=== PATIENT | female | born 1985 | race Caucasian/White ===

== ENCOUNTER 2024-01-05 08:19 | Outpatient (CLI) | payer OTHER, SELFPAY ==
--- NOTE | ~2024-01-05 | CT_ITS ---
EXAMINATION: CT abdomen pelvis w con INDICATION: Right lower quadrant pain TECHNIQUE: Computed tomographic images of the abdomen and pelvis were obtained after the administrati on of 100 cc of Omnipaque 350 intravenous contrast. The dose-length product (DLP) was 519.77 mGy-cm. Automated exposure control and iterative reconstruction technique were employed. COMPARISON: None available FINDINGS: There is a calcified granuloma in the medial aspect of the left lower lobe. The heart size is normal. There are multiple hypoattenuating lesions of the liver which measure up to 1.6 cm in the right hepatic lobe. Some have the appearance of cysts and others, hemangiomas. The spleen, pancreas, gallbladder, and adrenal glands are normal. Hypoattenuating lesions in the kidneys, measuring up to 5 mm on the left, are too small to characterize but likely represent cysts. There are surgical changes of the right colon. No pathologically enlarged abdominal or pelvic lymph nodes are identified. No fr ee intraperitoneal gas or evidence of bowel obstruction. There are nabothian cysts of the cervix. IMPRESSION: 1. No CT correlate for the patient's symptoms. Reviewed, dictated and finalized at location A.
== END 2024-01-05 08:20 | disposition home or self-care (01) ==
LOC: ANHIMG 08:24
PROVIDERS: PCP Nurse Practitioner Family; Visit Provider Nurse Practitioner Family
DX: R10.31 Right lower quadrant pain (principal)
CPT/HCPCS: 74177; Q9967

== ENCOUNTER 2024-10-28 16:27 | Outpatient (CLI) | payer OTHER, SELFPAY ==
--- NOTE | ~2024-10-28 | US_ITS ---
EXAM: PELVIC ULTRASOUND HISTORY: O03.9 - Complete or unspecified spontaneous with... Last beta hCG was ordered on 10/23/2028. No quantitative beta hCG to correlate today's study with. 2 para 1 Last menstrual period is given as 08/12/2024, for which an intrauterine gestation of approximately 11 weeks and 0 days should be demonstrated on today's examination. COMPARISON: None FINDINGS: UTERUS: 10 x 5.3 x 7.8 cm. The endometrial complex is thickened measuring approximately 14 to 15 mm. No discrete gestational sac is appreciated on the submitted static imaging. RIGHT OVARY: The right ovary is unremarkable in echogenicity and size measuring 3.7 x 1.9 x 3.0 cm. Dopplerable flow is identified. LEFT OVARY: The left ovary is unremarkable in echogenicity and size measuring 3.1 x 2.2 x 2.8 cm Dopplerable flow is identified. No free fluid is identified within the pelvis. IMPRESSION: No discrete gestational sac is appreciated on the submitted static imaging. Please correlate these findings with the serum beta hCG. Reviewed, dictated and finalized at location A. PICK UP DRIVER
--- OUTSIDE RECORDS SUMMARY | 2024-10-31 14:44 | XMS_ITS ---
Author Organization [facility] As Chrom[facility] Address [address] [place] [address] Care Team Providers Care Water Softener Service Supervisor Name Role Phone [facility] Primary Care Provider Unavailable Claudia Ya Unavailable [phone] REASON FOR VISIT buPROPion Social History Sex Assigned At : Social History Observation Description Sex Assigned At Female Encounters Encounter Location Date Provider Diagnosis [facility] [employer] [facility] [address] [place] [address] 09/27/2024 Claudia Ya Plan Of Treatment Next Appt Details Provider Name:Claudia Ya, 11/04/2024 04:45:00 PM, [address], [address], [place], [address], Progress Notes * CHAVO RUIZNDOB: (38 yo F)Acc No.[id number]:09/27/2024 Patient:?DAMI RUIZ :1985???Age:38 Y???Sex:Female Address:[address] [place] [place] [address] [place], [address] * true * Date:? Generated for Printi ng/Faxing/eTransmitting on:?10/31/2024 02:44 PM [employer]
--- OUTSIDE RECORDS SUMMARY | 2024-10-31 14:45 | XMS_ITS | Clinical Summary ---
Author Organization [facility] Address [address] [place] [address]. [place] [address] [place] [address] Care Team Providers Care Citrix Administrator Name Role Phone Rachelljeremy Christianne Mcgovern [facility] Primary Care Provid er Allergies Active Allergy Reactions Criticality Noted Date Comments Red Dye #40 (Allura Red) Rash Low 03/16/2022 Medications DULoxetine (CYMBALTA) 30 MG capsuleIndicati ons:HARSH (generalized anxiety disorder) Take 1 capsule (30 mg total) by mouth 2 (two) times daily. 60 capsule 6 08/25/2023 Active buPROPion XL (WELLBUTRIN XL) 150 MG 24 hr tablet Take 1 tablet (150 mg total) by mouth every morning. FOR 14 DAYS 11/02/2023 Active multi vitamin/mineral s (THERA-M ENHANCED) tablet Take 1 tablet by mouth daily. Active Active Problems Problem Noted Date Diagnosed Date Lipoma of back 03/18/2024 HARSH (generalized anxiety disorder) 02/24/2023 Major depressive disorder in full remission 02/06 Resolved Problems Problem Noted Date Diagnosed Date Resolved Date Menometrorrhagia 02/24/2023 02/24/2023 Multiple joint pain 02/24/2023 02/25/20 23 Exposure to severe acute res piratory syndrome coronavirus 2 (SARS-CoV-2) 05/29/2021 02/24/2023 (HHS/HCC) 01/15/2020 02/25/20 23 Encounters Date Type Department Care Team Description 08/07/2024 9:00 AM CDT Office Visit [facility] [address] [place] [address] Christianne Tirado, ONLINE PRODUCER- Cough (Productive cough started with allergies on right side x 2 weeks started getting better and then started cough with phlegm /Fever 100, 100.3 last night, Monday,Monday last week /drainage /Hot/cold ) 08/07/2024 Travel from Last 3 Months Immunizations Name Administration Dates Next Due Fluzone 6 Months+ Quad (0.5 mL Prefilled Syringe ) 08/25/2023 Influenza (Generic) 07/17/2012 Influenza Adult (Generic) 08/09/2019 Family History Medical History Relation Comments Anxiety Father COPD Father Smoker Rheumatoid Arthritis Father Cancer Maternal Grandfather gallbladder Diabetes Maternal Grandfather Stroke Maternal Grandmother Anxiety Mother acid reflux Mother Rheumatoid Arthritis Paternal Grandfather Failure to thrive Paternal Grandmother Relation Status Comments Father Alive Maternal Grandfather Maternal Grandmother Mother Alive Paternal Grandfather Paternal Grandmother Social History Tobacco Use Types Packs/Day Years Used Date Smoking Tobacco: Never Smokeless Tobacco: Never Tobacco Cessation:Counseling Given: Yes Alcohol Use Standard Drinks/Week Comments Yes 0 (1 standard drink = 0.6 oz pur e alcohol) PHQ-2 Answer Date Recorded Patient Health Questionnaire-2 Score 0 03/18/2024 Comments No Sex and Gender Information Value Date Recorded Sex Assigned at Not on file Legal Sex Female 8:07 PM CDT Gender Identity Not on file Sexual Orientation Not on file Last Filed Vital Signs Vital Sign Reading Time Taken Comments Blood Pressure 113/74 08/07/2024 9:07 AM CDT Pulse 90 08/07/2024 9:07 AM CDT Temperature 36.7 ??C (98.1 ??F) 08/07/2024 9:07 AM CD T Respiratory Rate 17 08/07/2024 9:07 AM CDT Oxygen Saturation 100% 08/07/2024 9:07 AM CDT Inhaled Oxygen Concentration - - Weight 71.8 kg (158 lb 3.2 oz) 08/07/2024 9:07 A M CDT Height 160 cm (5' 3 ) 08/07/2024 9:07 AM CDT Body Mass Index 28.02 08/07/2024 9:07 AM CDT Plan of Treatment Health Maintenance Due Date Last Done Comments Cervical Cancer Screening Pa p Smear (Age 30 to 64) Every 3 Years 1984 Annual Physical 12/25/1987 DTaP, Tdap and Td Vaccines ( 1 - Tdap) 12/25/2003 Hepatitis B Vaccines (1 of 3 - 19+ 3-dose series) 12/25/2003 Cervical Cancer Screening Pa p with HPV Testing (Age 30 to 64) Every 5 Years 2014 Cervical Cancer Screening wi th HPV 2014 COVID-19 Vaccine (1 - 2023-2 5 season) 2024 Influenza Adult (#1) 2024 08/25/2023, 08/09/2019, 07/17/2012 PHQ-2 (Physician [place]) 03/18/2025 03/18/2024 Hepatitis C Completed 03/17/2022 HPV Vaccines Aged Out No longer eligi ble based on patient's age to complete this topic Meningococcal B Vaccine Aged Out No l onger eligible based on patient's age to complete this topic Meningococcal Vaccine Aged Out No marta fernanda eligible based on patient's age to complete this topic Pneumococcal Vaccine: Pediatrics (0 to 5 Years) and At-Risk Patients (6 to 64 Years) Aged Out No longer eligible b ased on patient's age to complete this topic RSV Immunizations Under 20 Months Aged Out No longer eligible b ased on patient's age to complete this topic Procedures Procedure Name Priority Date/Time Associated Diagnosis Comments HEPATITIS C ANTIBODY Routine 03/17/2022 11:39 AM CDT Encounter for hepatitis C screening test for low risk patient from Last 3 Months or Most Recently Relevant to Health Maintenance Results * HEPATITIS C AB ([facility] ONLY) (03/17/2022 11:39 AM CDT) HEPATITIS C AB NON-REACTI VE NON-REACTI VE 03/17/2022 9:42 PM CDT [facility] 03/17/2022 11:3 9 AM CDT Sandra Mon NP LABORATORY Final Resul t [facility] [address] [place] [address], from Last 3 Months or Most Recently Relevant to Health Maintenance Insurance [employer] Care Teams Citrix Administrator Relationship Specialty Start Date End Date Christianne Tirado FNP-BC [address] [place] [address] PCP - General Nurse Practitioner Family 12/07/22
--- OUTSIDE RECORDS SUMMARY | 2024-10-31 14:45 | XMS_ITS ---
Author Organization [facility] Address [address] [facility] [address] [place] [address] Care Team Providers Care Wool Mixer Name Role Phone [facility]ALS[facility]Christianne Primary Care Provider Unavailable Musa Ya Unavailable [phone] Allergies No Known Allergies REASON FOR VISIT follow up Medications Medication SIG (Take, Route, Frequency, Duration) Notes Start Date End Date Status LORazepam 0.5 MG 1 tablet Orally Once a day 2023 Active buPROPion HCl ER (XL) 150 MG 1 tablet in the morning Orally Once a day for 90 days Active DULoxetine HCl 30 MG 1 capsule Oral Once a day for 90 days Active Social History Tobacco Use: Social History Observation Description Date Details (start date - stop date) Never Smoker NA - NA Sex Assigned At : Social History Observation Description Sex Assigned At Female Household Question Answer Notes Marital status: Number of children in household: One daughter Tobacco Control (Standard) Question Answer Notes Tobacco use: Nonsmoker Encounters Encounter Location Date Provider Diagnosis [facility] [employer] [facility] [address] [place] [address] 09/02/2024 Musa Ya Major depressive disorder, recurrent, mild F33.0 ; Generalized anxiety disorder F41.1 and ADHD (attention deficit hyperactivity disorder), combined type F90.2 Assessments Encounter Date Diagnosis (ICD Code) Assessment Notes Treatment Notes Treatment Clinical Notes Section Notes 09/02/2024 Major depressive disorder, recurrent, mild (ICD-10 - F33.0) 09/02/2024 Generalized anxiety disorder (ICD-10 - F41.1) 09/02/2024 ADHD (attention deficit hyperactivity disorder), combined type (ICD-10 - F90.2) working dx 09/02/2024 Other Decrease duloxetine to 30mg once daily Continue Wellbutrin 150mg daily Patient educated on all medications including potential benefits, side effects, risks. Educated on proper dosing schedule and importance of compliance. Consider tapering off of duloxetine after holidays Plan Of Treatment Medication Medication Name Sig Start Date Stop Date Notes buPROPion HCl ER (XL) 150 MG 1 tablet in the morning Orally Once a day for 90 days DULoxetine HCl 30 MG 1 capsule Oral Once a day for 90 days Treatment Notes Assessment Notes Other Decrease duloxetine to 30mg once daily Continue Wellbutrin 150mg daily Patient educated on all medications including potential benefits, side effects, risks. Educated on proper dosing schedule and importance of compliance. Consider tapering off of duloxetine after holidays Next Appt Details Follow Up: 6 Weeks, Reason: medication follow up Provider Name:Musa Ya, 11/04/2024 04:45:00 PM, [address] [place] [address], [facility] [address], [address], Progress Notes * CHAVO RUIZNDOB: (38 yo F)Acc No.[id number]:09/02/2024 Patient:?DAMI RUIZBuffy Provider:?MUSA YA PMHNP :1985???Age:38 Y???Sex:Female D ate:09/02/2024 Address:[address] [place], [place] [id number] Pcp:Christianne Tirado [facility] Subjective: * Chief Complaints: * ???Follow up * HPI: ???Providence-Suicide Severity Rating Scale:?Suicide Risk (CSRS-screener)?in the past one month Have you wished you were or wished you could go to sleep and not wake up??No,?in the past one month Have you actually had any thoughts of killing yourself??No,?Have you ever done anything, started to do anything, or prepared to do anything to end your life??No.?Depression screening:?PHQ-9?Little interest or pleasure in doing things?Several days,?Feeling down, depressed, or hopeless?Several days,?Trouble falling or staying asleep, or sleeping too much?Several days,?Feeling tired or having little energy?Several days,?Poor appetite or overeating?Not at all,?Feeling bad about yourself or that you are a failure, or have let yourself or your family down?Not at all,?Trouble concentrating on things, such as reading the newspaper or watching television?Several days,?Moving or speaking so slowly that other people could have noticed; or the opposite, being so fidgety or restless that you have been moving around a lot more than usual?Not at all,?Thoughts that you would be better off or of hurting yourself in some way?Not at all.?Intervention Depression Screening Findings?Positve,?Follow- Up for Depression?Mental health treatment assessment, Patient follow-up to return when and if necessary,?Suicide Risk Assessment Performed? csrs negative ,?Additional Evaluation for Depression?Psychiatric interview and evaluation,?Name of the standardized tool used for adult depression screening:?Patient Health Questionnaire (PHQ-9).?History of Presenting Problem:?Medication Side Effects?decreased libido.?Anxiety?Rates anxiety 3/10 with 10 being most severe. Denies recent panic attacks.?.?Depression?Rates depression 2/10 with 10 being most severe.?.?Mood lability?no hx ximena. Psychosis?no hx psychosis.?Suicidal ideation?denies.?ADHD?easily distracted by extraneous stimuli, has difficulty organizing tasks and activities, does not follow through on instructions and fails to finish work, has difficulty sustaining attention in tasks or play activity, often on the go or often acts as if driven by a motor.?Psychotherapy?Has a counselor at [facility] in [place].?.?Here for follow up. Duloxetine decreased last apt. Reports she is doing better . Continues to report irritability, although triggered by work, no irritability at home with family. Denies feeling depressed, gets low mood when she is overwhelmed. Denies panic attacks. Anxiety is overall improved.? Sleep is fair, getting about 7 horus nightly. Energy is fair. Appetite is good. ???Past Psychiatric Hospitalizations:? Social hx: . Has one daughter-3 years old. She would like another child. Works as a physical therapist, is also a PT. Originally from [facility], 's family from [place]. 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 Previous Psychiatric History past diagnosis: MDD, HARSH previous admissions/IOP/PHP: none history of SI/SA: no history of suicide attempts. History of fleeting thoughts, no history of plans. family psychiatric history: father-depression and HARSH; mother-depression; maternal grandmother-HARSH. previously trialled medications: Prozac, Lexapro, Cymbalta, Effexor, Wellbutrin.? history of neglect/abuse/trauma: step father would get angry , denies history of physical abuse. substance use history: denies. * ROS:?General / Constitutional:?Patient denies?change in appetite, headache, sleep disturbance, weight gain, weight loss.?Neurologic:?Patient denies?headache, irritability, memory loss.?Psychiatric:?Patient denies?suicidal thoughts, ximena, psychosis, auditory / visual hallucinations, delusions.?Patient complains of?anxiety, difficulty concentrating.?Comments?See HPI for details.? * Medical History:? * Surgical History:?Appendecto my ([id number]) 08/18/2015Other 08/18/2015Colectomy ([id number]) 08/18/2015 * Hospitalization/Major Diagno stic Procedure:? * Family History:?Father: Depr essive disorder .?Mother: Anxiety disorder , Depressive disorder .? * Social History:?Tobacco Use:?Tobacco Control (Standard)?Tobacco use:?Nonsmoker.?Migrated Social History:?Migrated Social History: Alcohol Intake: Moderate 10/05/2023,Tobacco Years: Never smoker 10/05/2023. ???Household:?Household?Marital status:?,?Number of children in household:? One daughter.?Miscellaneous:?Occupation: Physical therapist. Advance Care Planning?Are you your own decision-maker?Yes,?Do you have Power of [employer] Crewmember for Health or Medical??No.? * Medications:?TakingDULoxetin e HCl 30 MG Capsule Delayed Release Particles 1 capsule Oral twice daily buPROPion HCl ER (XL) 150 MG Tablet Extended Release 24 Hour 1 tablet in the morning Orally Once a day LORazepam 0.5 MG Tablet 1 tablet Orally Once a day Medication List reviewed and reconciled with the patientTaking DULoxetine HCl 30 MG Capsule Delayed Release Particles 1 capsule Oral twice daily Taking buPROPion HCl ER (XL) 150 MG Tablet Extended Release 24 Hour 1 tablet in the morning Orally Once a day Taking LORazepam 0.5 MG Tablet 1 tablet Orally Once a day Medication List reviewed and reconciled with the patient * Allergies:?N.K.D.A.no[Allerg ies Verified] Objective: * Vitals:? * Examination: ???Psychiatry: ?Appearance:?well-groomed.?Abnormal body movements:?none.?Affect / mood:?appropriate.?Attention:?good.?Attitude:?cooperative.?Homicidal ideation:?none.?Suicidal ideation:?none.?Degree of awareness of surroundings:?within normal limits.?Delusions:?no.?Hallucinations:?no.?Judgement:?good.?Orientation:?awake, alert and oriented x 3.?Perceptual disorders:?no perceptual disorder noted.?Psychomotor activity:?within normal range.?Speech / language:?normal rate, volume, and articulation (RVR), clear and coherent.?Thought content:?appropriate.?Thought process:?intact.? Assessment: * Assessment: 1.?Major depressive disorder , recurrent, mild - F33.0 (Primary)???2.?Generalized anxiety disorder - F41.1???3.?ADHD (attention deficit hyperactivity disorder), combined type - F90.2??? Plan: * Treatment: 2.?ADHD (attention deficit h yperactivity disorder), combined type? Refill buPROPion HCl ER (XL) Tablet Extended Release 24 Hour, 150 MG, 1 tablet in the morning, Orally, Once a day, 90 days, 90 Tablet, Refills 0.?? Clinical Notes: working dx?? 3.?Others? Notes: Decrease duloxetine to 30mg once daily Continue Wellbutrin 150mg daily Patient educated on all medications including potential benefits, side effects, risks. Educated on proper dosing schedule and importance of compliance. Consider tapering off of duloxetine after holidays ?? * Procedure Codes:?83178 BEHAV ASSMT W/SCORE & DOCD/STAND [id number] VISIT COMPLEXITY INHERENT TO ONGOING CARE RELATED TO A PATIENT'S SINGLE, SERIOUS CONDITION OR A COMPLEX [id number] CLIN DEPRESSION SCREEN DOC * Follow Up:?6 Weeks (Reason: medication follow up) * Billing Information: * Visit Code:? 15365 OFFICE OUTPATIENT VISIT 25 MINUTES DETAILED HISTORY AND EXAM/MODERATE MEDICAL DECISION MAKING. * Procedure Codes:? 98830 BEHAV ASSMT W/SCORE & DOCD/STAND INSTRUMENT. G2211 VISIT COMPLEXITY INHERENT TO ONGOING CARE RELATED TO A PATIENT'S SINGLE, SERIOUS CONDITION OR A COMPLEX CONDITION. G8431 CLIN DEPRESSION SCREEN DOC. * TILE SETTER Sign off status: Completed true * Provider:?ARMANDO JAMES Date:? Generated for Soha vazquez/Jasper/eTransmitting on:?10/31/2024 02:44 PM HARD TILE SETTER History and Physical Notes * HPI (History of Present Illness) Category Sub-Category Detail Notes Category Not es History of Presenting Problem Anxiety Rates anxiety 3/10 with 10 b eing most severe. Denies recent panic attacks. Here for follow up. Duloxetine decreased last apt. Reports she is doing better . Continues to report irritability, although triggered by work, no irritability at home with family. Denies feeling depressed, gets low mood when she is overwhelmed. Denies panic attacks. Anxiety is overall improved. Sleep is fair, getting about 7 horus nightly. Energy is fair. Appetite is good. Depression Rates depression 2/1 0 with 10 being most severe. Suicidal ideation denies Psychosis no hx psychosis Mood lability no hx ximena ADHD easily distracted by extraneous stimuli, has difficulty organizing tasks and activities, does not follow through on instructions and fails to finish work, has difficulty sustaining attention in tasks or play activity, often on the go or often acts as if driven by a motor Psychotherapy Has a counselor at [facility] in [place]. Medication Side Effects decreased libido Past Psychiatric Hospitalizations Social hx: . Has one daughter-3 years old. She would like another child. Works as a physical therapist, is also a PT. Originally from [place], 's family from [place]. 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 Previous Psychiatric History past diagnosis: MDD, HARSH previous admissions/IOP/PHP: none history of SI/SA: no history of suicide attempts. History of fleeting thoughts, no history of plans. family psychiatric history: father-depression and HARSH; mother-depression; maternal grandmother-HARSH. previously trialled medications: Prozac, Lexapro, Cymbalta, Effexor, Wellbutrin. history of neglect/abuse/trauma: step father would get angry , denies history of physical abuse. substance use history: denies Depression screening PHQ-9 Little inte rest or pleasure in doing things: Several days Feeling down, depressed, or hopeless: Se veral days Trouble falling or staying asleep, or sl eeping too much: Several days Feeling tired or having little energy: S everal days Poor appetite or overeating: Not at all Feeling bad about yourself o r that you are a failure, or have let yourself or your family down: Not at all Trouble concentrating on thi ngs, such as reading the newspaper or watching television: Several days Moving or speaking so slowly that other people could have noticed; or the opposite, being so fidgety or restless that you have been moving around a lot more than usual: Not at all Thoughts that you would be b pablito off or of hurting yourself in some way: Not at all Intervention Depression Screening Findings: P ositve Follow-Up for Depression: [facility] treatment assessment, Patient follow-up to return when and if necessary Suicide Risk Assessment Performed: csrs negative Additional Evaluation for De pression: Psychiatric interview and evaluation Name of the standardized too l used for adult depression screening:: Patient Health Questionnaire (PHQ-9) Providence-Suicide Severity Rating Scale Suicide Risk (CSRS-screener) in the past one month Have you wished you were or wished you could go to sleep and not wake up?: No in the past one month Have y ou actually had any thoughts of killing yourself?: No ?Have you ever done anything , started to do anything, or prepared to do anything to end your life?: No Examination Category Sub-Category Detail Notes Category Not es Psychiatry Appearance: well-groomed Attitude: cooperative Psychomotor activity: within normal rang e Abnormal body movements: none Attention: good Degree of awareness of surroundings: wit hin normal limits Orientation: awake, alert and faith ented x 3 Affect / mood: appropriate Speech / language: normal rate, volume, and articulation (RVR), clear and coherent Judgement: good Thought process: intact Thought content: appropriate Perceptual disorders: no perceptual diso rder noted Suicidal ideation: none Homicidal ideation: none Delusions: no Hallucinations: no
--- OUTSIDE RECORDS SUMMARY | 2024-10-31 14:45 | XMS_ITS | Patient Health Record ---
Author Organization [facility] [employer] Address [address] [place] [address] Care Team Providers Care Pediatrician/Medical Doctor Name Role Phone Candida Christianne HENSLEY Primary Care Provider Unavailable Claudia Ya Unavailable [phone] Dar Salomon Unavailable [phone] Migration, Provider Unavailable Unavailable Allergies No Known Allergies Results Component Value Reference Range Notes UDT Reviewed date:06/01/2024 11:36:38 AM Interpretation: Performing Lab: Notes/Report: THC n 0 - 50 ng/ml Cocaine n 0 - 300 ng/ml Amphetamine n 0 - 1000 ng/ml Buprenorphine (BUP) n 0 - 10 ng/ml Secobarbital (Bar) n 0 - 300 ng/ml Oxazepam (BZO) n 0 - 300 ng/ml 6-rlkydkuwqm-1,1-vxlduews-5,3-diphenylpyrrolidine (JOHN P) n 0 - 300 ng/ml Methamphetamine (MET) n 0 - 1000 ng/ml Methylenedioxymethamphetamine (MDMA) n 0 - 500 ng/ml Morphine (MOP 300/[id number]) n 0 - 300 ng/ml Methadone (MTD) n 0 - 300 ng/ml Phencyclidine (PCP) n 0 - 25 ng/ml Propoxyphene (PPX) n 0 - 300 ng/ml Nortriptyline (TCA) n 0 - 1000 ng/ml Oxycodone n 0 - 300 ng/ml Reason For Referral No Information Medications Medication SIG (Take, Route, Frequency, Duration) [...] (Standard) Question Answer Notes Tobacco use: Nonsmoker Problems Problem Type SNOMED Code ICD Code Onset Dates Problem Status W/U Status Risk Notes Problem Mild recurrent major depression (94611638) Major depressive disorder, recurrent, mild (F33.0) Active confirmed Problem Generalized anxiety disorder (73881854) Generalized anxiety disorder (F41.1) Active confirmed Problem Attention deficit hyperactivity disorder (388032768) ADHD (attention deficit hyperactivity disorder), combined type (F90.2) Active confirmed Procedures Procedure Date Ordered Date Performed Result Body Sit e ADHD Testing 05/13/2024 N/A Encounters Encounter Location Date Provider Diagnosis [facility] [employer] [place] [id number] [facility] [address] [facility] [address] [place] [address] 11/06/2023 Claudia Felton Major depressive disorder, recurrent, mild F33.0 and Generalized anxiety disorder F41.1 [facility] [employer] [place] [id number] [facility] [address] [facility] [address] [place] [address] 05/13/2024 Claudia Felton Major depressive disorder, recurrent, mild F33.0 ; Generalized anxiety disorder F41.1 and ADHD (attention deficit hyperactivity disorder), combined type F90.2 [facility] [employer] [facility] [address] [facility] [address] [facility] [address] [place] [address] 05/31/2024 Dar Salomon ADHD (attention deficit hyperactivity disorder), combined type F90.2 [employer] [place] [address] [facility] [address] [place] [address] 06/07/2024 Claudia Felton Major depressive disorder, recurrent, mild F33.0 ; Generalized anxiety disorder F41.1 and ADHD (attention deficit hyperactivity disorder), combined type F90.2 [facility] [employer] [facility] [address] [facility] [address] [place] [address] 08/05/2024 Claudia Felton Major depressive disorder, recurrent, mild F33.0 ; Generalized anxiety disorder F41.1 and ADHD (attention deficit hyperactivity disorder), combined type F90.2 [facility] [place] [address] [facility] [address] [address] 09/02/2024 Claudia Ya Major depressive disorder, recurrent, mild F33.0 ; Generalized anxiety disorder F41.1 and ADHD (attention deficit hyperactivity disorder), combined type F90.[address] [address] 11/06/2023 Provider Migration [address] [address] 12/03/2023 Provider Migration [address] [address] 12/08/2023 Provider Migration [address] [address] 02/24/2024 Provider Migration [address] [address] 02/25/[address] [address] 09/27/2024 Claudia Ya Assessments Encounter Date Diagnosis (ICD Code) Assessment Notes Treatment Notes Treatment Clinical Notes Section Notes 05/13/2024 Major depressive disorder, recurrent, mild (ICD-10 - F33.0) 05/13/2024 Generalized anxiety disorder (ICD-10 - F41.1) 11/06/2023 Major depressive disorder, recurrent, mild (ICD-10 - F33.0) 11/06/2023 Generalized anxiety disorder (ICD-10 - F41.1) 05/31/2024 ADHD (attention deficit hyperactivity disorder), combined type (ICD-10 - F90.2) 06/07/2024 Major depressive disorder, recurrent, mild (ICD-10 - F33.0) 08/05/2024 Major depressive disorder, recurrent, mild (ICD-10 - F33.0) 09/02/2024 Major depressive disorder, recurrent, mild (ICD-10 - F33.0) 09/02/2024 Generalized anxiety disorder (ICD-10 - F41.1) 08/05/2024 Generalized anxiety disorder (ICD-10 - F41.1) 06/07/2024 Generalized anxiety disorder (ICD-10 - F41.1) 05/13/2024 ADHD (attention deficit hyperactivity disorder), combined type (ICD-10 - F90.2) 06/07/2024 ADHD (attention deficit hyperactivity disorder), combined type (ICD-10 - F90.2) working dx 08/05/2024 ADHD (attention deficit hyperactivity disorder), combined type (ICD-10 - F90.2) working dx 09/02/2024 ADHD (attention deficit hyperactivity disorder), combined type (ICD-10 - F90.2) working dx 05/13/2024 Other Schedule for ADHD evaluation to rule in or rule out diagnosis. Continue duloxetine 30mg BID for mood, anxiety. Consider decrease in future. Patient educated on all medications including potential benefits, side effects, risks. Educated on proper dosing schedule and importance of compliance. Continue counseling. Supportive therapy provided. 06/07/2024 Other ADHD evaluation reviewed, overall did not support diagnosis, however impaired in several modalities, pt reporting symptomatic hx consistent with dx, discussed possible mild ADHD/compensati ng behaviors, or sxs more related to depression, anxiety. Currently, depression well controlled. Discussed treatment options including starting non-stimulant and monitoring symptoms, targeting depression/anxi ety treatment, or bupropion for depression/off- label ADHD symptom treatment. Start Wellbutrin 150mg daily for mood, ADHD symptoms. Patient educated on all medications including potential benefits, side effects, risks. Educated on proper dosing schedule and importance of compliance. 08/05/2024 Other Continue current medications for now, pt wanting to attempt to taper down duloxetine to 30mg qd due to decreased libido, consider increase in wellbutrin next apt if needed. Patient educated on all medications including potential benefits, side effects, risks. Educated on proper dosing schedule and importance of compliance. 09/02/2024 Other Decrease duloxetine to 30mg once daily Continue Wellbutrin 150mg daily Patient educated on all medications including potential benefits, side effects, risks. Educated on proper dosing schedule and importance of compliance. Consider tapering off of duloxetine after holidays Plan Of Treatment Pending Test Test Name Order Date ADHD Testing 05/13/2024 Next Appt Details Provider Name:Claudia Ya, 11/04/2024 04:45:00 PM, [address], [place], [address], Insurance Providers Payer Name Payer Address Payer Phone Subscriber Number Group Number Insured Name Patient Relationship to Insured Coverage Start Date Coverage End Date r [address] [address] [place] [address] [id number] DAYLIN MCLAIN Self - patient is the insured Medical (General) History Medical History History ICD Code Problems: Generalized anxiety disorder Mild recurrent major depression , Surgical History Surgery Date(Month/Year) Appendectomy (85031) 08/18/2015 Other 08/18/2015 Colectomy (44842) 08/18/2015
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
--- OUTSIDE RECORDS SUMMARY | 2024-10-31 14:45 | XMS_ITS | Data Portability ---
Author Organization [facility] Aayushmissy as, [facility] Address [address] [place] [address] Care Team Providers Care Felt Carbonizer Name Role Phone CARL SCHWAB Assessment No assessment recorded. Plan of Treatment Reminders Order Date Submit Date Provider Last Modified By Organization Details Last Modified Time Details Appointments None recorded. Lab streptococc us group B, culture, vaginal or rectal 2019 020 [email or web address] Not available 0 09:17:20 test, urine 2019 020 [email or web address] In-Office Order, Internal Use Only DO Not Attach Compendium DO Not Attach Compendium, Do Not Delete/merge, [id number] 0 11:46:58 Referral None recorded. Procedures None recorded. Surgeries None recorded. Imaging None recorded. Medication Orders None recorded. Patient TargetsNo targets recorded. Patient Instructions Encounter Date Encounter Id Patient Instructions Last Modified By Organization Details Last Modified Time 10/05/2020 [id number] Care at Home With Your Baby: Care Instructions [email or web address] Not available 10/05/2020 11:46:57 Reason for Referral None Reported. Results Created Date Observation Date Name Description Value Unit Range Abnormal Flag Note LastModifiedBy Organization Detail LastModifiedTime 08/17/20 20 08/19/2020 strep tococ cus group B, cultu re, vagin al or recta l final No Group B Strep Isolat ed Not Available [facility] (Ad[facility] [address] [place] [address] Dean, [place], [address], 08/19/2020 11:44:31 10/05/20 20 10/05/2020 pregn octavio test, urine HCG negati ve Not Available In-Office Order Internal Use Only DO Not Attach Compendium DO Not Attach Compendium, Do Not Delete/merge, [id number] 10/05/2020 11:32:38 05/29/20 21 05/29/2021 rapid SARS CoV 2 Ag, QL IA, respi rator y speci men Unknown Analyte negati ve Not Available In-Office Order Internal Use Only DO Not Attach Compendium DO Not Attach Compendium, Do Not Delete/merge, [id number] 05/29/2021 10:18:40 05/29/20 21 05/29/2021 rapid SARS CoV 2 Ag, QL IA, respi rator y speci men Unknown Analyte [id number] Not Available In-Off ice Order Internal Use Only DO Not Attach Compendium DO Not Attach Compendium, Do Not Delete/merge, [id number] 05/29/2021 10:18:40 05/29/20 21 05/29/2021 rapid SARS CoV 2 Ag, QL IA, respi rator y speci men Unknown Analyte 10/13/19 Not Available In-Office Order Internal Use Only DO Not Attach Compendium DO Not Attach Compendium, Do Not Delete/merge, [id number] 05/29/2021 10:18:40 05/29/20 21 05/29/2021 rapid SARS CoV 2 Ag, QL IA, respi rator y speci men Unknown Analyte OK Not Available In-Off ice Order Internal Use Only DO Not Attach Compendium DO Not Attach Compendium, Do Not Delete/merge, [id number] 05/29/2021 10:18:40 06/01/20 21 06/03/2021 SARS- COV-2 , MIREYA sars-cov-2, MIREYA Not Detect ed not detect ed This nucle ic acid ampli ficat ion test was devel oped and its perfo rmanc e anders cteri stics deter mined by [facility]. Nucle ic acid ampli ficat ion tests inclu de RT-PC R and TMA. This test has not been FDA clear ed or appro henrik. This test has been autho rized by FDA under an Emerg ency Use Autho rizat ion (EUA) . This test is only autho rized for the durat ion of time the decla ratio n that circu mstan patric exist justi fying the autho rizat ion of the emerg ency use of in vitro diagn ostic tests for detec tion of SARS- CoV-2 virus and/o r diagn osis of COVID -19 infec tion under secti on 564(b )(1) of the Act, 21 U.S.C . 360bb b-3(b ) (1), unles s the autho rizat ion is termi nated or revok ed soone r. When diagn ostic testi ng is negat cedric, the possi bilit y of a false negat cedric resul t shoul d be consi dered in the kathy xt of a patie nt's recen t expos ures and the prese nce of clini richard signs and sympt oms consi stent with COVID -19. An indiv idual witho ut sympt oms of COVID -19 and who is not holli ing SARS- CoV-2 virus would expec t to have a negat cedric (not detec lex) resul t in this assay . Not Available [facility] ([facility]) [address] [facility], [place], [address], 06/04/2021 00:07:15 06/01/2006/03/2021 SARS- COV-2 , MIREYA sars-cov-2, MIREYA 2 day tat Perfor med Not Available [facility] ([facility]) [address] [place], [address], 06/04/2021 00:07:15 Result Notes None recorded. Problems Name Problem SNOMED Code Status Onset Date Resolution Date Notes Provider Name and Address Organization Details Recorded Time Anxiety 28498838 Active Lauren butler, [place] - [facility] - [facility] 0 10:47:31 Depressive disorder 99539266 Active Lauren Aranda null, [place] - [facility] - [facility] 0 10:47:31 Generalized anxiety disorder 44442203 Active Lauren Aranda null, [facility] 0 10:47:31 Menometrorr hagia 237439033 Active Lauren Aranda null, [facility] 0 10:47:31 Multiple joint pain 64302869 Active Lauren Aranda null, [facility] 0 10:47:31 26397284 Completed 201910/05/2020 DENNIS CRUZ MD [address], [place], [address], [facility] 0 11:47:24 Exposure to SARS-CoV-2 Active 2020 Billy Spence NP null, [facility] 1 10:18:37 Problem Notes None recorded. Procedures Surgical History Date Name Laterality Status Provider Name and Address Organization Details Recorded Time 05/18/20 20 Telehealth Communication completed DENNIS CRUZ MD [address], [place], [address], [facility] 05/18/2020 08:37:05 02/24/20 20 1st Trimester US completed DENNIS CRUZ MD [address], [place], [address], [facility] 02/24/2020 12:05:17 01/15/20 20 Telehealth Communication completed Sudhir Garcia MA [facility] 01/15/2020 09:28:26 09/20/20 19 Date of Last Pap Smear completed Lauren Aranda [facility] 03/23/2020 10:47:32 04/25/20 18 Colposcopy completed DENNIS CRUZ MD [address], [place], [address], [facility] 04/25/2018 11:35:16 10/09/19 16 Genitourinary Procedure completed Lauren Aranda [place] - [facility] [place] 03/23/2020 10:47:31 Imaging Results None recorded. Procedure Notes None recorded. Medical Equipment None Reported. Allergies Allergen ID Allergen Name Allergen Category Reaction Reaction Severity Criticality Documentation Date Start Date Code Code System Note Provider Name and Address Organization Details Recorded Time 387476 red dye food,medi cation rash Not available Not available 10/05/2018 UNK Lauren butler [place] - [facility] [place] 0 10:47:24 Medications Name Sig Start Date Stop Date Status Note LastModified by Organization Details LastModified Time prednisone 10 mg tablet Take 1 tablet twice a day by oral route for 5 days. 01/14 completed Not Available Not Available Not Available venlafaxine ER 75 mg capsule,ext ended release 24 hr TAKE 1 CAPSULE BY MOUTH EVERY DAY 08/19 completed Not Available Not Available Not Available venlafaxine 75 mg tablet Take 1 tablet every day by oral route for 30 days. active Not Available Not Available No t Available clomiphene citrate 50 mg tablet Take 1 tablet by mouth daily for 5 days, starting on cycle day #3 01/14 completed Not Available Not Available Not Available Zithromax Z-Hardeep 250 mg tablet TAKE 2 TABLETS (500 MG) BY ORAL ROUTE ONCE DAILY FOR 1 DAY THEN 1 TABLET (250 MG) BY ORAL ROUTE ONCE DAILY FOR 4 DAYS 03/14 completed Not Available Not Available Not Available Aygestin 5 mg tablet take 1 tab daily for 30 days, after that take 1 tab daily for the first 10days of each month. 12/11 completed Not Available Not Available Not Available triamcinolo ne acetonide 0.1 % topical cream APPLY A THIN LAYER TO THE AFFECTED AREA(S) on arms and abd BY TOPICAL ROUTE 2 TIMES PER DAY 12/11 completed Not Available Not Available Not Available lorazepam 0.5 mg tablet Take 1 tablet as needed by oral route for anxiety/p anic attacks. 01/14 completed Not Available Not Available Not Available methylpredn isolone acetate 40 mg/mL suspension for injection Take 1 mL by injection route. 12/11 completed [id number] 03-00 45-01 Not Available Not Available Not Available Provera 10 mg tablet Take 1 tablet every day by oral route for 10 days. 01/14 completed Not Available Not Available Not Available codeine 10 mg-guaifene sin 100 mg/5 mL oral liquid Take 10 mL every 6 hours by oral route as needed. 03/14 completed Not Available Not Available Not Available dexamethaso ne sodium phosphate 4 mg/mL injection solution Take 1 mL by injection route. 12/11 completed [id number] 323-1 65-30 Not Available Not Available Not Available letrozole 2.5 mg tablet take 1 tab by mouth for 5 days, starting on cycle day #3 01/14 completed Not Available Not Available Not Available Augmentin 500 mg-125 mg tablet Take 1 tablet every 12 hours by oral route for 7 days. 01/14 completed Not Available Not Available Not Available amoxicillin 875 mg-potassiu m clavulanate 125 mg tablet active Not Available Not Available Not Available nitrofurant oin monohydrate /macrocryst als 100 mg capsule TK 1 C PO BID FOR 7 DAYS 06/26 completed Not Available Not Available Not Available duloxetine 30 mg capsule,del ayed release 04/06 completed Not Available Not Available Not Available Cymbalta 60 mg capsule,del ayed release Take 1 capsule every day by oral route. active Not Available Not Available No t Available active Not Available Not Avai lable Not Available Cymbalta 06/26 completed Not Available Not Available Not Available venlafaxine ER 75 mg tablet,exte nded release 24 hr Take 1 tablet every day by oral route for 30 days. 08/19 completed Not Available Not Available Not Available Fish Oil 1,000 mg (120 mg-180 mg) capsule Take by oral route. active Not Available Not Available No t Available Anusol-HC 2.5 % topical cream with perineal applicator APPLY A THIN LAYER TO THE AFFECTED AREA(S) BY TOPICAL ROUTE 2-4 TIMESDAIL Y 06/26 completed Not Available Not Available Not Available Vitals Date Recorded Body height Provider Name an d Address Organization Details Last Updated DateTime 08/03/2020 160.02 cm Luz Porter, [facility] - [facility] 08/03/2020 10:14:47 Date Recorded Body mass index (BMI) Body weight Provider Name and Address Organization Details Last Updated DateTime 08/03/2020 31.7 kg/m2 79453.24791 g Luz Porter, [facility] [place] 08/03/2020 10:16:11 Date Recorded Heart rate Provider Name an d Address Organization Details Last Updated DateTime 08/03/2020 94 /min Luz Porter, [facility] 08/03/2020 10:15:23 Date Recorded Body height Provider Name an d Address Organization Details Last Updated DateTime 08/17/2020 160.02 cm Luz Porter, [facility] [place] [facility] 08/17/2020 10:05:51 Date Recorded Body mass index (BMI) Body weight Provider Name and Address Organization Details Last Updated DateTime 08/17/2020 32 kg/m2 96436.965772 g Luz Porter, [facility] [place] 08/17/2020 10:07:05 Date Recorded Heart rate Provider Name an d Address Organization Details Last Updated DateTime 08/17/2020 94 /min Luz Porter, [facility] 08/17/2020 10:06:22 Date Recorded Body height Provider Name an d Address Organization Details Last Updated DateTime 08/24/2020 160.02 cm [facility] 08/24/2020 09:23:35 Date Recorded Body mass index (BMI) Body weight Provider Name and Address Organization Details Last Updated DateTime 08/24/2020 32.1 kg/m2 70873.29217 g Sudhir [facility] 08/24/2020 09:24:07 Date Recorded Heart rate Provider Name an d Address Organization Details Last Updated DateTime 08/24/2020 99 /min [facility] 08/24/2020 09:23:45 Date Recorded Body height Provider Name an d Address Organization Details Last Updated DateTime 10/05/2020 160.02 cm Luz Porter [facility] 10/05/2020 10:59:17 Date Recorded Body mass index (BMI) Provider Name and Address Organization Details Last Updated DateTime 10/05/2020 28.5 kg/m2 Luz Porter CMA [facility] 10/05/2020 10:59:26 Date Recorded Body weight Provider Name an d Address Organization Details Last Updated DateTime 10/05/2020 88876.236995 g DENNIS CRUZ MD [address], [place], [address], [facility] 10/05/2020 11:47:22 Date Recorded Heart rate Provider Name an d Address Organization Details Last Updated DateTime 10/05/2020 115 /min Luz Porter [facility] 10/05/2020 10:59:42 Date Recorded Systolic blood pressure Diastolic blood pressure Provider Name and Address Organization Details Last Updated DateTime 08/03/2020 122 mm[Hg] 82 mm[Hg] Luz Porter [facility] 08/03/2020 10:15:16 Date Recorded Systolic blood pressure Diastolic blood pressure Provider Name and Address Organization Details Last Updated DateTime 08/17/2020 125 mm[Hg] 76 mm[Hg] [facility] 08/17/2020 10:06:13 Date Recorded Systolic blood pressure Diastolic blood pressure Provider Name and Address Organization Details Last Updated DateTime 08/24/2020 136 mm[Hg] 83 mm[Hg] Sudhir Garcia MA [facility] 08/24/2020 09:23:42 Date Recorded Systolic blood pressure Diastolic blood pressure Provider Name and Address Organization Details Last Updated DateTime 10/05/2020 117 mm[Hg] 77 mm[Hg] Luz Porter [facility] 10/05/2020 10:59:38 Social History Question Answer Notes LastModified by Organizat ion Details LastModified Time Tobacco Smoking Status Never Smoker Lauren butler [facility] 03/23/2020 10:47:23 Do You Have An Advance Directive? No Information not available 06/26/2020 What Is Your Level Of Alcohol Consumption? Occasional Information not available 03/23/2020 Is Anesthesia Consult Planned? No Information not available 03/23/2020 Is Blood Transfusion Acceptable In An Emergency? Yes Information not available 03/23/2020 What Is Your Level Of Caffeine Consumption? Occasional Information not available 03/23/2020 How Much Tobacco Do You Chew? None Information not available 03/23/2020 In The 14 Days Before Symptom Onset, Have You Had Close Contact With A Laboratory-confi rmed COVID-19 While That Case Was Ill? No Information not available 06/26/2020 In The 14 Days Before Symptom Onset, Have You Had Close Contact With A Person Who Is Under Investigation For COVID-19 While That Person Was Ill? No Information not available 06/26/2020 Have You Been To An Area Known To Be High Risk For COVID-19? No Information not available 06/26/2020 Are You Currently Employed? Yes Information not available 03/23/2020 Which Illicit Or Recreational Drugs Have You Used? N/a Information not available 03/23/2020 Have You Directly Handled Bats, Rodents, Or Primates From Ebola Endemic Areas? No Information not available 03/23/2020 Have You Had Contact With Blood, Bodily Fluids, Or Human Remains Of A Patient Known To Have Or Suspected To Have Ebola Virus Disease? No Information not available 03/23/2020 Do You Reside In Or Have You Traveled To An Area Where Ebola Virus Transmission Is Active? No Information not available 03/23/2020 Do You Or Have You Ever Used E-cigarettes Or Vape? 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 No Information not available 06/26/2020 Live Alone Or With Others? With Others Information not available 03/14/2018 Hand Dominance Right Informatio n not available 06/26/2020 Fever (greater Than 38? ? C Or 100.4? ? F ) No Information not available 03/23/2020 Severe Headache No Informati on not available 03/23/2020 Muscle Pain No Information n ot available 03/23/2020 Weakness No Information no t available 03/23/2020 Diarrhea No Information no t available 03/23/2020 Vomiting No Information no t available 03/23/2020 Abdominal (stomach) Pain No Information not available 03/23/2020 Unexplained Hemorrhage (bleeding Or Bruising) No Information not available 03/23/2020 If You Are , Have You Recently Traveled To [place], [place], [facility], [place], [place], [facility] Or [place]? No Information not available 03/23/2020 If You Have Traveled To Any Of These Areas And Were Bitten By Mosquitos, Have You Noticed Any Symptoms Of Fever, Rash, Joint Pain, Red Eyes Within 2 Weeks Of Your Travel? No Information not available 03/23/2020 Advance Directive - Provider Has Reviewed Directives And Consents To Follow Them (insert Provider Name With Any Objections In Notes Field) No Information not available 06/26/2020 Are Guns In The Home Locked Up? No Information not available 06/26/2020 Marital Status Informatio n not available 03/23/2020 What Was The Date Of Your Most Recent Tobacco Screening? 04/19/2019 Information not available 03/23/2020 How Many Children Do You Have? 0 Information not available 03/23/2020 Do You Use Your Seat Belt Or Car Seat Routinely? Yes Information not available 03/23/2020 Seat Belts Used Routinely Yes Information not available 03/23/2020 Are You Sexually Active? Yes Information not available 03/23/2020 Number Of Sexual Partners 10 1 Last 6 Months Information not available 03/14/2018 Smoke Alarm In Home Yes Information not available 06/26/2020 Are You Passively Exposed To Smoke? No Information not available 06/26/2020 Do You Or Have You Ever Used Smokeless Tobacco? Never Used Smokeless Tobacco [place] Information not available 06/26/2020 How Much Tobacco Do You Smoke? No Information not available 03/23/2020 General Stress Level Medium Information not available 06/26/2020 Do You Use Sunscreen Routinely? Yes Information not available 06/26/2020 Supplements Pnv, Fish Oil audiamudio Informatio n not available 03/23/2020 Sex: Female Functional Status Question Answer Note LastModified by Organizat ion Details LastModified Time What is your exercise level? Occasional Information not available 03/23/2020 Mental Status None recorded. Family History Relationship Description Onset Age of this Age Resolved Age Notes LastModified by Organization Details LastModified Time Father Rheumatoid arthritis [email or web address] Not available 2019 10:47:31 Father Depressive disorder [email or web address] Not available 2019 10:47:31 Father Disorder of thyroid gland [email or web address] Not available 2019 10:47:31 Father Cerebrovascu lar accident [email or web address] Not available 03/27/2020 09:08:07 Mother Depressive disorder [email or web address] Not available 2019 10:47:31 Maternal Uncle Malignant tumor of pancreas [email or web address] Not available 2019 10:47:31 Maternal Grandmother Cerebrovascu lar accident [email or web address] Not available 03/27/2020 09:08:07 Medical History Condition Response Thyroid Disease N Anxiety Y Blood Transfusion Y Gallbladder Disease N Sexually Transmitted Disease N Depression Y Polycystic Ovaries N Depression/Anxiety Y Anemia Y Pulmonary Emobolism N Smoking History N Diabetes N Bleeding Disorder N Pain Y Cancer N Asthma N Endometriosis N Abnormal Pap Y Heart Disease N Hypertension N Chicken Pox Y Gynecological History Statement/Question Response Abnormal Pap Y Date of LMP 11/29/2019 STIs/STDs N Current Control Method None Age at Menarche 12 Number of Pregnancies? 1 Number of Living Children 0 Sexually Active? Y N Control at End of Visit Seeking Pr egnancy Monthly Self Breast Exam? N Excessive Bleeding? N Date of Last Pap Smear 09/20/2019 Sexual Problems? N Abnormal Periods? N Obstetrics History GPAL:G 1 P 1 0 0 0 Type Value Full Term 1 Total 1 Immunizations Vaccine Type Date Status Note Provider Nam e and Address Organization Details Recorded Time Influenza, split virus, quadrivalent, preservative 9 completed Lauren Streeterayaka butler [place] - [facility] 03/23/2020 10:47:33 Past Encounters Encounter ID Performer Location Encounter Start Date Encounter Closed Date Diagnosis/Indication Diagnosis SNOMED-CT Code Diagnosis ICD10 Code Diagnosis Note [id number] Lauren Kapoormudio [facility] [place] [address] [place] [address] 09/09/2015 14:20:23 09/10/2015 12:57:05 Generalized anxiety disorder 65131229 F41.1 Menometrorrhagia 8178252 08 N92.1 Multiple joint pain 3567 8005 M25.50 Screening for cardiovascular system disease 143111719 Z13.6 Diabetes m ellitus screening 230584455 Z13.1 [id number] Lauren Kapoormudio KIT [facility] [place] [address] [facility] [address] [place] [address] 05/04/2016 15:49:57 05/05/2016 10:03:48 Depressive disorder 30483964 F32.9 Generalize d anxiety disorder 79719443 F41.1 [id number] Lauren Nieveso KIT 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 [place] [address] [place] [address] 03/02/2017 16:55:19 03/03/2017 13:32:32 Upper respiratory infection 23031873 J06.[id number] [facility] [address], [address] [place] [address] 03/14/2018 13:38:59 03/14/2018 16:47:37 Abnormal uterine bleeding 3593946245 9100 N93.9 - I suspect this is due to lack of exogenous hormonal control that was previously provided by OCPs.- However, will screen labs and US to rule out other etiologies prior to conceiving . Screening for malignant neoplasm of cervix 124035950 Z12.4 Gynecologi c examination 99455939 Z01.419 - pap: collected - Contracept ion: none - STI screening: declined - RTC for annual exam, sooner PRN [id number] Lauren Manoj [facility] [address], [address] [place] [address] 04/25/2018 10:40:09 04/27/2018 15:44:53 Abnormal cervical Papanicolaou smear 384074719 R87.619 - colposcopy performed, see procedure note for details- Will call with results, if low risk, plan for repeat pap in 12 and 24mo. If high grade, will schedule for LEEP. [id number] Lauren Aranda [facility] [address], [address] [place] [address] 05/16/2018 14:16:55 05/21/2018 08:09:36 Abnormal uterine bleeding 1923250673 9100 N93.9 - Given that bleeding has been going on for 6w, will check a CBC to assess for anemia.- UPT to rule out SAB- I discussed management options to include progestero ne cyclically vs. lysteda as patient is trying to conceive. Patient desires to try progestero ne at this time.- RTC prn. [id number] Lauren Aranda [facility] [address] [place] [address] 10/05/2018 19:35:41 10/05/2018 20:36:08 Acute contact dermatitis 431962527 L25.9 DIsc risk/benef it and side effects of steroids and pt VU [id number] Lauren Aranda [facility] [place] [address] [facility] [address] [place] [address] 12/11/2018 19:09:51 12/12/2018 13:48:53 Serous otitis media 01323211 H65.93 [id number] Lauren Aranda [facility] [place] [address] [facility] [address] [place] [address] 04/19/2019 19:59:47 04/20/2019 11:37:19 Missed period 80989541 N92.5 [id number] Lauren Aranda [address], [address] [address] [place] [address] 09/20/2019 10:51:33 09/25/2019 11:19:05 Gynecologic examination [id number] Z01.419 - pap: collected - Contracept ion: none - STI screening: declined - RTC for annual exam, sooner PRN Screening for malignant neoplasm of cervix [id number] Z12.4 Subfertility [id number] N 97.9 - we discussed any abnormalit ies would warrant expedited referral to [facility]. [id number] Lauren Aranda [address], [address] [place] [address] 10/15/2019 15:22:05 10/16/2019 13:37:17 Anovulation [id number] N97.0 - I went over with patient the schedule of ovulation induction. A timeline was given to aid patient with proper timing of medication s, fertility tracking, and timed intercours e.- I discussed the risks and benefits of ovulation induction with Clomid. Patient expressed understand ing and wishes to proceed with this method. Cyst of ovary [id number] N 83.209 - Will obtain baseline ultrasound as patient has a history of ovarian cyst. [id number] Lauren Aranda [facility] [address] [place] [address], [address] [place] [address] 01/15/2020 09:25:48 01/16/2020 11:55:07 Routine care [id number] Z34.91 Recommend patient continue taking a PNV. Discussed anticipate d course of care, hospitalis t/call coverage, and performed first trimester education and counseling . Discussed carrier screening, aneuploidy and NTD screening options,an d given printed informatio n. Discussed routine OB labwork, including HIV, and routine anatomy ultrasound (and timing). Encouraged enrollment in nurse navigator program. Discussed first trimester/ bleeding/E R warnings, n/v of and treatment options/re commendati ons, treatment of regular aches/pain s/headache s with OTC acetaminop hen and dosing, treatment of constipati on with OTC stool softener or MiraLax, avoidance of NSAIDs and other OTC and prescripti on medication s without first discussing with provider. RTC for NOB doctor visit around 10-12 weeks gestation, or RTC or ER sooner prn. [id number] Lauren Aranda [facility] [address], [address] [place] [address] 02/24/2020 11:17:09 02/24/2020 12:59:45 Routine care [id number] Z34.81 - Outline of plan for care discussed with patient. - JONH discussed. - labs to be drawn today - STI screening obtained - Urine culture obtained - Pap collected - DAting US today - RTC in 6 weeks Advanced m aternal age [id number] O09.194 [id number] Basilio Robins [facility] [address] [place] [address] 03/27/2020 08:43:58 03/27/2020 12:15:11 Elderly primigravida [id number] O09.512 #1) Advanced maternal age The patient was counseled about the associatio n between advanced maternal age and the increased risk of aneuploidy . The patient's age related risk of Down Syndrome is 1 in 296. The patient's age related risk of total aneuploidy risk is 1 in 134. The patient has had cell free DNA screening result high risk for Triploidy. The patient had a anatomic ultrasound performed today. The visualized anatomy appears normal. There are no markers of aneuploidy visualized on ultrasound today. I discussed the limitation s of ultrasound in the definitive diagnosis of Down Syndrome/ aneuploidy . I discussed cell free DNA screening which screens only for Trisomy 13, 18, and 21. The patient was counseled that approximat shannan 17% of fetuses will have an underlying genetic syndrome in patients who have had low risk cell free DNA screening results. I discussed an amniocente sis as providing definitive diagnosis of aneuploidy . The patient was counseled about the risks of amniocente sis. The patient was counseled that the procedure related risk of amniocente sis for loss is approximat shannan 1 in 200-300. The patient declines cell free DNA screening today. The patient was offered an amniocente sis for FISH, karyotype, and microarray , however the patient declines genetic amniocente sis today. Abnormal b iochemical finding on screening of mother [id number] O28.1 Chromosoma l abnormality in fetus affecting obstetrical care 16440281 O35.1XX0 Gestation period, 15 weeks 7950261 Z3A.15 Mental dis order during - baby not yet delivered [id number] O99.342 F41.1 [id number] [address] [facility] [address] [facility], [address] [place] [address] 04/06/2020 09:22:32 04/06/2020 12:45:20 Routine care [id number] Z34.81 - MKM f/u in 3w- RTC in 6 weeks [id number] Basilio Robins [facility] [address] [place] [address] 04/20/2020 11:30:34 04/20/2020 15:17:07 Elderly primigravida [id number] O09.512 #1) Advanced maternal age The patient was counseled about the associatio n between advanced maternal age and the increased risk of aneuploidy . The patient's age related risk of Down Syndrome is 1 in 296. The patient's age related risk of total aneuploidy risk is 1 in 134. The patient has had cell free DNA screening result high risk for Triploidy. The patient had a anatomic ultrasound performed today. The visualized anatomy appears normal. There are no markers of aneuploidy visualized on ultrasound today. I discussed the limitation s of ultrasound in the definitive diagnosis of Down Syndrome/ aneuploidy . I discussed cell free DNA screening which screens only for Trisomy 13, 18, and 21. The patient was counseled that approximat shannan 17% of fetuses will have an underlying genetic syndrome in patients who have had low risk cell free DNA screening results. I discussed an amniocente sis as providing definitive diagnosis of aneuploidy . The patient was counseled about the risks of amniocente sis. The patient was counseled that the procedure related risk of amniocente sis for loss is approximat shannan 1 in 200-300.. The patient was offered an amniocente sis for FISH, karyotype, and microarray , however the patient declines genetic amniocente sis today. Abnormal b iochemical finding on screening of mother [id number] O28.1 Chromosoma l abnormality in fetus affecting obstetrical care 03290328 O35.1XX0 Mental dis order during - baby not yet delivered [id number] O99.342 F41.1 Gestation period, 19 weeks 07810460 Z3A.19 [id number] [address] [facility] [address] [facility], [address] [place] [address] 05/18/2020 09:10:37 05/18/2020 11:23:09 Routine care [id number] Z34.81 RTC 4w with 1hr GTT [id number] Basilio Robins [facility] [address] [place] [address] 05/25/2020 09:15:18 05/25/2020 11:27:19 Elderly primigravida [id number] O09.512 #1) Advanced maternal age The patient was counseled about the associatio n between advanced maternal age and the increased risk of aneuploidy . The patient's age related risk of Down Syndrome is 1 in 296. The patient's age related risk of total aneuploidy risk is 1 in 134. The patient has had cell free DNA screening result high risk for Triploidy. The patient had a anatomic ultrasound performed today. The visualized anatomy appears normal. There are no markers of aneuploidy visualized on ultrasound today. I discussed the limitation s of ultrasound in the definitive diagnosis of Down Syndrome/ aneuploidy . I discussed cell free DNA screening which screens only for Trisomy 13, 18, and 21. The patient was counseled that approximat shannan 17% of fetuses will have an underlying genetic syndrome in patients who have had low risk cell free DNA screening results. I discussed an amniocente sis as providing definitive diagnosis of aneuploidy . The patient was counseled about the risks of amniocente sis. The patient was counseled that the procedure related risk of amniocente sis for loss is approximat shannan 1 in 200-300.. The patient was offered an amniocente sis for FISH, karyotype, and microarray , however the patient declines genetic amniocente sis today. Abnormal b iochemical finding on screening of mother [id number] O28.1 Chromosoma l abnormality in fetus affecting obstetrical care 33132141 O35.1XX0 Mental dis order during - baby not yet delivered 448030946 O99.342 F41.1 Gestation period, 24 weeks 225848710 Z3A.24 [id number] [facility] [address] [facility] [address], [address] [place] [address] 06/22/2020 09:27:46 06/22/2020 16:33:43 Routine care [id number] Z34.81 RT 4w [id number] Mckenna Arias MD [facility] [place] [address] [facility] [address] [place] [address] 06/26/2020 13:32:46 06/26/2020 14:38:20 Dysplastic nevus of skin 891614135 D22.9 refer to dermatolog y for possible biopsy if needed. [id number] DENNIS CRUZ MD [facility] [address] [facility], [address] [place] [address] 07/20/2020 09:47:18 07/21/2020 15:42:42 Routine care [id number] Z34.81 RTC 2w [id number] DENNIS CRUZ MD [facility] [address] [facility], [address] [place] [address] 08/03/2020 10:00:55 08/03/2020 17:27:49 Routine care [id number] Z34.81 RTC 2w with GBS [id number] DENNIS CRUZ MD [facility] [address] [facility], [address] [place] [address] 08/17/2020 09:47:11 08/17/2020 16:49:21 Routine care [id number] Z34.81 RTC 1w [id number] DENNIS CRUZ MD [facility] [address] [facility], [address] [place] [address] 08/24/2020 09:14:01 08/25/2020 09:09:09 Routine care [id number] Z34.81 RTC 1w [id number] DENNIS CRUZ MD [facility] [address] [facility], [address] [place] [address] 10/05/2020 10:50:14 10/05/2020 12:14:02 care 863536890 Z39.2 - patient doing well PP- patient counseled on signs/symp toms of PP depression /anxiety- patient counseled on the risk of with short interval . She was advised that minimum of 12 months, optimally 18 months, it is recommende d for interpregn octavio interval.- Contracept ion plan: condoms- RTC for annual exam. [id number] Billy Spence NP [facility] [address] [place] [address] 05/29/2021 09:31:00 05/29/2021 10:22:16 Health Concerns Section Related Observation LastModified by Organization Detai ls LastModified Time None Recorded Concern Status LastModified by Organization Details LastModified Time None Recorded Advance Directives Directive N: Payers Encounter Date Sequence Insurance Name Policy Number Policy Mulligan Covered Member ID Mulligan Member ID Guarantor Name 08/03/2020 1 [employer] Lauren R Candida Barciszewski [id number] Lauren R Candida Barciszewski 08/17/2020 1 [employer] Lauren R Candida Barciszewski [id number] Lauren R Candida Barciszewski 08/24/2020 1 [employer] Lauren R Candida Barciszewski [id number] Lauren R Candida Barciszewski 10/05/2020 1 [employer] Lauren R Candida Barciszewski [id number] Lauren R Candida Barciszewski 05/29/2021 1 [employer] Lauren R Candida Barciszewski [id number] Lauren R Candida Barciszewski Notes Date Note Type Note Provider Name and Address Organization Details Recorded Time 08/03/2020 text/html Patient is a 34 y/o with JOHN of 09/13/20 by 11w US, not c/w LMP care with Dr. rCuz since 11w. has been complicated by:1. AMA 2. H/o LEEP3. H/o colon resection4. NIPT with increased risk of triploidy- AFter MFM eval, likely vanishing twin5. Elevated 1hr GTT of 153- 3hr GTT normal: 81/153/114/70 Patient is having a girl. She is planning to breast feed. Plan for PP Contraception: condoms. labs: MBT: O+, Ab neg Pap: normal in 2019 GC/CT/TV: -/-/- Urine Cx: negative HIV/HepB/RPR: -/-/- Rubella: immune Varicella: immune Baseline Cr: 0.63 Genetic Screening: increased risk of triploidy Ultrasound: 1hr GTT: 153 - 3hr GTT: 81/153/114/70GBS: PMH: PSH: colon resection, LEEP POBHx: primigragida Meds: PNV Social Hx: LTP: 1, Occupation: works at [employer], no T/E/D. 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 History of STI: denies. DENNIS CRUZ MD [address], [place], [address], [facility] 08/03/2020 10:23:48 08/17/2020 text/html Patient is a 34 y/o with JOHN of 09/13/20 by 11w US, not c/w LMP care with Dr. Cruz since 11w. has been complicated by:1. AMA 2. H/o LEEP3. H/o colon resection4. NIPT with increased risk of triploidy- AFter MFM eval, likely vanishing twin5. Elevated 1hr GTT of 153- 3hr GTT normal: 81/153/114/70 Patient is having a girl. She is planning to breast feed. Plan for PP Contraception: condoms. labs: MBT: O+, Ab neg Pap: normal in 2019 GC/CT/TV: -/-/- Urine Cx: negative HIV/HepB/RPR: -/-/- Rubella: immune Varicella: immune Baseline Cr: 0.63 Genetic Screening: increased risk of triploidy Ultrasound: 1hr GTT: 153 - 3hr GTT: 81/153/114/70GBS: PMH: PSH: colon resection, LEEP POBHx: primigragida Meds: PNV Social Hx: LTP: 1, Occupation: works at [employer], no T/E/D. 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 History of STI: denies. DENNIS CRUZ MD [address], [place], [address], [facility] 08/17/2020 10:30:56 08/24/2020 text/html Patient is a 34 y/o with JOHN of 09/13/20 by 11w US, not c/w LMP care with Dr. Cruz since 11w. has been complicated by:1. AMA 2. H/o LEEP3. H/o colon resection4. NIPT with increased risk of triploidy- AFter MFM eval, likely vanishing twin5. Elevated 1hr GTT of 153- 3hr GTT normal: 81/153/114/70 Patient is having a girl. She is planning to breast feed. Plan for PP Contraception: condoms. labs: MBT: O+, Ab neg Pap: normal in 2019 GC/CT/TV: -/-/- Urine Cx: negative HIV/HepB/RPR: -/-/- Rubella: immune Varicella: immune Baseline Cr: 0.63 Genetic Screening: increased risk of triploidy Ultrasound: 1hr GTT: 153 - 3hr GTT: 81/153/114/70GBS: negative PMH: PSH: colon resection, LEEP POBHx: primigragida Meds: PNV Social Hx: LTP: 1, Occupation: works at [employer], no T/E/D. 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 History of STI: denies. DENNIS CRUZ MD [address] [place], [address], [facility] 08/24/2020 09:33:52 10/05/2020 text/html Patient is a 34 y/o who presents for PP care. She is 4w s/p . Patient denies problems or complaints. Her bleeding has stopped. She is breast feeding. She denies any signs or symptoms of PP depression. She desires to use condoms for contraception. DENNIS CRUZ MD [address], [place], [address], [facility] 10/05/2020 11:47:45 OBGyn Episode Ob Episode Information Episode Created Date Number of Fetuses Patient Bloodtype Patient rh Status Prepregnancy Weight lbs Domestic Partner Domestic Partner Phone Father Name Supervisor Cooler Service Status 01/15/20 20 1 O Positive CLOSED Fetus Data First Name Last Name Admitted to NICU Weight (g) Sex Living Outcome Pediatric Complications Fetus ID Race Codes Race Delivery Type 2446.58 [id number] F Full Term [id number] Vaginal John Calculation Initial John Date Initial Exam Date Initial Exam Provider Initial Ultrasound Date Last Menstrual Period Date Ultra Sound Weeks Gestation 09/04/2020 01/15/2020 02/24/2020 11/29/2019 11 Eighteen To Twenty Week John Update Ultra Sound Date Fundal Height At Umbil Quickening Date Ultra Sound Latest Weeks Gestation Final John Confirmed By Final John Confirmed Date Final John Date Ultra Sound Latest Days Gestation 0 [email or web address] 02/24/2020 09/13/20 20 0 Pre-kvng Flowsheet Flowsheet Date 01/15/2020 Aguilar Score Blood Edema Fundus Height Fundus Units Glucose Ketones Leukocytes Nitrite Labor Signs Protein Cervic Dilation Cervic Effacement Cervic Station Type Weight in lbs Pre/Post Dialysis Refused BP Diastolic BP Location Tested BP Systolic BP Type Fetus Heart Rate Present Fetus Movement Comments Flowsheet Date 02/24/2020 Aguilar Score Blood Edema Fundus Height Fundus Units Glucose Ketones Leukocytes Nitrite Labor Signs Protein Cervic Dilation Cervic Effacement Cervic Station neg none negative none Negative neg Type Weight in lbs Pre/Post Dialysis Refused Weight 149.824765549780 BP Diastolic BP Location Tested BP Systolic BP Type 78 124 sitting Fetus Heart Rate Present A 184 Fetus Movement Comments Patient presents for new OB care and examination, please see SOAP note for details. Flowsheet Date 03/27/2020 Aguilar Score Blood Edema Fundus Height Fundus Units Glucose Ketones Leukocytes Nitrite Labor Signs Protein Cervic Dilation Cervic Effacement Cervic Station Type Weight in lbs Pre/Post Dialysis Refused Weight 153.321968853649 BP Diastolic BP Location Tested BP Systolic BP Type 82 112 sitting Fetus Heart Rate Present Fetus Movement Comments Flowsheet Date 04/06/2020 Aguilar Score Blood Edema Fundus Height Fundus Units Glucose Ketones Leukocytes Nitrite Labor Signs Protein Cervic Dilation Cervic Effacement Cervic Station none none Type Weight in lbs Pre/Post Dialysis Refused Weight 152.159265868891 BP Diastolic BP Location Tested BP Systolic BP Type 73 124 sitting Fetus Heart Rate Present A 155 Fetus Movement A Yes Comments Patient denies any pain or b leeding. She is status post MFM consult due to NIPT with increased risk of triploidy. 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 Patient has follow-up MFM consult in 3 weeks. Flowsheet Date 04/20/2020 Aguilar Score Blood Edema Fundus Height Fundus Units Glucose Ketones Leukocytes Nitrite Labor Signs Protein Cervic Dilation Cervic Effacement Cervic Station Type Weight in lbs Pre/Post Dialysis Refused Weight 153.560560822084 BP Diastolic BP Location Tested BP Systolic BP Type 87 112 sitting Fetus Heart Rate Present Fetus Movement Comments Flowsheet Date 05/18/2020 Aguilar Score Blood Edema Fundus Height Fundus Units Glucose Ketones Leukocytes Nitrite Labor Signs Protein Cervic Dilation Cervic Effacement Cervic Station none Type Weight in lbs Pre/Post Dialysis Refused Weight 160.045931237110 BP Diastolic BP Location Tested BP Systolic BP Type Fetus Heart Rate Present Fetus Movement A Yes Comments patient denies pain or bleed ing. we reviewed Dr. Robins's most recent US report. patient inquiring about sleeping positions and we discussed safety in . we discussed plan for 1hr GTT at next visit. Flowsheet Date 05/25/2020 Aguilar Score Blood Edema Fundus Height Fundus Units Glucose Ketones Leukocytes Nitrite Labor Signs Protein Cervic Dilation Cervic Effacement Cervic Station Type Weight in lbs Pre/Post Dialysis Refused Weight 159.284878373668 BP Diastolic BP Location Tested BP Systolic BP Type 81 113 sitting Fetus Heart Rate Present Fetus Movement Comments Flowsheet Date 06/22/2020 Aguilar Score Blood Edema Fundus Height Fundus Units Glucose Ketones Leukocytes Nitrite Labor Signs Protein Cervic Dilation Cervic Effacement Cervic Station neg none 29 cm none negative none Negative none neg Type Weight in lbs Pre/Post Dialysis Refused Weight 163.965947861648 BP Diastolic BP Location Tested BP Systolic BP Type 75 137 sitting Fetus Heart Rate Present A 150 Fetus Movement A Yes Comments Patient denies contractions, vaginal bleeding, loss of fluids. 1 hour GTT being performed today. Flowsheet Date 06/26/2020 Aguilar Score Blood Edema Fundus Height Fundus Units Glucose Ketones Leukocytes Nitrite Labor Signs Protein Cervic Dilation Cervic Effacement Cervic Station Type Weight in lbs Pre/Post Dialysis Refused Weight 166.310826404402 BP Diastolic BP Location Tested BP Systolic BP Type 80 142 Fetus Heart Rate Present Fetus Movement Comments Flowsheet Date 07/20/2020 Aguilar Score Blood Edema Fundus Height Fundus Units Glucose Ketones Leukocytes Nitrite Labor Signs Protein Cervic Dilation Cervic Effacement Cervic Station neg none none negative none Negative none neg Type Weight in lbs Pre/Post Dialysis Refused Weight 173.287935321938 BP Diastolic BP Location Tested BP Systolic BP Type 63 129 sitting Fetus Heart Rate Present A 148 Present Fetus Movement A Yes Comments Patient denies contractions, vaginal bleeding, loss of fluid. She reports receiving flu shot through work on Monday. Flowsheet Date 08/03/2020 Aguilar Score Blood Edema Fundus Height Fundus Units Glucose Ketones Leukocytes Nitrite Labor Signs Protein Cervic Dilation Cervic Effacement Cervic Station neg 33 cm none negative none Negative none neg Type Weight in lbs Pre/Post Dialysis Refused Weight 179.600836678734 BP Diastolic BP Location Tested BP Systolic BP Type 82 122 sitting Fetus Heart Rate Present A 150 Fetus Movement A Yes Comments Patient denies contractions, vaginal bleeding, loss of fluids. We discussed plans for GBS culture at next visit. Flowsheet Date 08/17/2020 Aguilar Score Blood Edema Fundus Height Fundus Units Glucose Ketones Leukocytes Nitrite Labor Signs Protein Cervic Dilation Cervic Effacement Cervic Station neg trace 35 cm none negative none Negative none neg 1cm 5 0% -4 Type Weight in lbs Pre/Post Dialysis Refused With clothes 180.112772412358 BP Diastolic BP Location Tested BP Systolic BP Type 76 125 sitting Fetus Heart Rate Present A 150 Fetus Movement A Yes Comments Patient denies contractions, vaginal bleeding, loss of fluids. GBS culture collected today. Flowsheet Date 08/24/2020 Aguilar Score Blood Edema Fundus Height Fundus Units Glucose Ketones Leukocytes Nitrite Labor Signs Protein Cervic Dilation Cervic Effacement Cervic Station neg trace 37 cm none negative none Negative Stefano Freeman neg 1cm 70% -3 Type Weight in lbs Pre/Post Dialysis Refused Weight 181.686930216107 BP Diastolic BP Location Tested BP Systolic BP Type 83 136 sitting Fetus Heart Rate Present A 150 Fetus Movement A Yes Comments Patient denies regular contr actions, vaginal bleeding, loss of fluids. GBS negative status reviewed with patient. Labor precautions reviewed. Flowsheet Date 10/05/2020 Aguilar Score Blood Edema Fundus Height Fundus Units Glucose Ketones Leukocytes Nitrite Labor Signs Protein Cervic Dilation Cervic Effacement Cervic Station Type Weight in lbs Pre/Post Dialysis Refused With clothes 160.170980412925 BP Diastolic BP Location Tested BP Systolic BP Type 77 117 sitting Fetus Heart Rate Present Fetus Movement Comments Menstrual History Last Menstrual Date Menses Monthly On Bcp Conception Prior Menses Frequency Hcg Plus Date Menarche Onset Age 0211/29/2019 true 30 13 Genetic Screening And Infection History Question Response Note Nanci Disease false Maternal Metabolic Disorder (eg, Type 1 Diabetes, PKU) false Any Other Genetic History false Rash Or Viral Illness Since Last Menstrual Period false Patient's Age Will Be 35 Yea rs Or Older At Estimated Date of Delivery true Medications (including Suppl ements, Vitamins, Herbs, OTC Drugs), Illicit/Recreational Drugs, Alcohol false History Of STD, Gonorrhea, C hlamydia, HPV, Syphilis false Other Infection History false If Yes, Was Person Tested For Fragile X? false Live With Someone With TB Or Exposed To TB false Tate-Sachs (eg, Yazidism, Cajun , Chinese-[place]) false Hemophilia Or Other Blood Disorders false Other Inherited Genetic Or C hromosomal Disorder false Patient Or Baby's Father Had A Child With Defects Not Listed Above false If Yes, Agent(s) And Strength/Dosage false Patient Or Partner Has Histo ry Of Genital Herpes false Neural Tube Defect (Meningom yelocele, Spina Bifida, Or Anencephaly) false Recurrent Loss, Or A Stillbirth false Cleft palate false History of HIV false History of Hepatitis false Prior GBS-infected child false Thalassemia (Setswana, Vietnamese, Mediterranean, Or Background): MCV < 80 false Congenital Heart Defect true FOB's co usin born w 3 holes in his heart Down Syndrome false Sickle Cell Disease Or Trait () false Muscular Dystrophy false Cystic Fibrosis false Sandi's Chorea false Mental Retardation/Autism false Plans and Education First Trimester Discussed Date Discussion Item Discussion Note Discuss ed By 01/15/2020 HIV and other routine tests alautiechase 01/15/2020 Risk factors identif ied by history alautiechase 01/15/2020 Anticipated course of care alautiechase 01/15/2020 Nutrition counseling ; special diet; dietary precautions (mercury, listeriosis) alautiej 01/15/2020 Weight gain counseling alaut iej 01/15/2020 Toxoplasmosis precautions (cats/raw meat) alautiej 01/15/2020 Sexual activity ala01/15/2020 Exercise ala01/15/2020 Dental care alautie01/15/2020 Environmental/work hazards a 01/15/2020 Avoidance of saunas or hot tubs 01/15/2020 Teratogens alaut01/15/2020 Travel 01/15/2020 Tobacco/smoking cess ation counseling (ask, advise, assess, assist, and arrange) denies ie01/15/2020 Alcohol denies 01/15/2020 Illicit/recreational drugs denies a 01/15/2020 denies 01/15/2020 Screening for aneuploidy unk ala utie01/15/2020 Use of any medicatio ns (including supplements, vitamins, herbs, or OTC drugs) pnv 01/15/2020 Indications for ultrasonography ala01/15/2020 Intimate partner violence denies al aut01/15/2020 Seat belt use denies 01/15/2020 Childbirth classes/hospital facilities alautie Second Trimester Discussed Date Discussion Item Discussion Note Discuss ed By Third Trimester Discussed Date Discussion Item Discussion Note Discuss ed By Delivery Information Delivery Date Delivery Type Labor Anesthesia Weeks Gestation Incision Type Labor Labor Length Hrs Delivered By Post Complications Tubal Sterilization Discharge Date Comments 0 Sponta neous Regional-Ep idural 37.4 amccollum5 None Discharge Information Feeding Method Contraceptive Method Maternal HG B and HCT Levels Bottle condoms
== END 2024-10-28 16:28 | disposition home or self-care (01) ==
LOC: ANHIMG 16:29
PROVIDERS: PCP Nurse Practitioner Family; Visit Provider Obstetrics & Gynecology
DX: O03.9 Complete or unspecified spontaneous abortion without complication (principal); O46.90 Antepartum hemorrhage, unspecified, unspecified trimester; Z3A.00 Weeks of gestation of pregnancy not specified
CPT/HCPCS: 36415; 76801; 76817; 86850; 86900; 86901

== ENCOUNTER 2025-05-26 16:55 | Outpatient (CLI) | payer OTHER, SELFPAY ==
--- OUTSIDE RECORDS SUMMARY | 2025-05-26 17:00 | XMS_ITS | Clinical Summary ---
Author Organization [facility] Address [facility] [place] [address] Care Team Providers Care Financial Planner Name Role Phone Rachelljeremy Christianne Mcgovern [facility] Primary Care Provid er Allergies [...] piratory syndrome coronavirus 2 (SARS-CoV-2) 05/29/2021 02/24/2023 ([facility]) 01/15/2020 02/25/20 23 Immunizations Immunization Administration Dates Next Due Fluzone 6 Months+ [...] 90 08/07/2024 9:07 AM CDT Temperature 36.7 C (98.1 F) 08/07/2024 9:07 AM CDT Respiratory Rate 17 08/07/2024 9:07 AM CDT Oxygen Saturation 100% 08/07/2024 9:07 AM CDT Inhaled Oxygen Concentration - - Weight 71.8 kg (158 lb 3.2 oz) 08/07/2024 9:07 A M CDT Height 160 cm (5' 3) 08/07/2024 9:07 AM CDT Body Mass Index 28.02 08/07/2024 9:07 AM CDT Plan of Treatment Health Maintenance Due Date Last Done Comments Cervical Cancer Screening Pa p Smear (Age 30 to 64) Every 3 Years 1984 Annual Physical 12/25/1987 DTaP, Tdap and Td Vaccines ( 1 - Tdap) 12/25/2003 Hepatitis B Vaccines (1 of 3 - 19+ 3-dose series) 12/25/2003 HPV Vaccines (1 - 3-dose SCD M series) 12/25/2011 Cervical Cancer Screening Pa p with HPV Testing (Age 30 to 64) Every 5 Years 2014 Cervical Cancer Screening with HPV 2014 COVID-19 Vaccine ( - 2023-2 5 season) 2024 PHQ-2 (Physician [place]) 10/09/2024 03/18/2024 Mammogram Screening 2024 Hepatitis C Completed 03/17/2022 Meningococcal B Vaccine Aged Out No l onger eligible based on patient's age to complete this topic Meningococcal Vaccine Aged Out No marta fernanda eligible based on patient's age to complete this topic Pneumococcal Vaccine: Pediat rics (0 to 5 Years) and At-Risk Patients (6 to 49 Years) Aged Out No longer eligi ble based on patient's age to complete this topic RSV Immunizations Under 20 Months Aged Out No longer eligible based on patient's age to complete this topic Procedures Procedure Name Priority Date/Time Associated Diagnosis Comments HEPATITIS C ANTIBODY Routine 03/17/2022 11:39 AM CDT Encounter for hepatitis C screening test for low risk patient from Last 3 Months or Most Recently Relevant to Health Maintenance Results * HEPATITIS C AB ([facility] ONLY) (03/17/2022 11:39 AM CDT) HEPATITIS C AB NON-REACTI VE NON-REACTI VE 03/17/2022 9:42 PM CDT [facility] 03/17/2022 11:3 9 AM CDT Sandra Mon NP LABORATORY Final Resul t [facility] [address] [place] [address], [place] [phone] from Last 3 Months or Most Recently Relevant to Health Maintenance Insurance [employer] [place] [id number] Care Teams Financial Planner Relationship Specialty Start Date End Date Christianne Tirado FNP-BC [address] [place] [address] PCP - General Nurse Practitioner Family 12/07/22
--- OUTSIDE RECORDS SUMMARY | 2025-05-26 17:00 | XMS_ITS | Patient Health Record ---
Author Organization [facility] Receptor Address [address] [facility] [address] [place] [address] Care Team Providers Care Annealing Furnace Operator Name Role Phone [facility] Primary Care Provider Unavailable Claudia Victoria Unavailable [phone] Elena Crenshaw Unavailable [phone] Dar Salomon Unavailable [phone] Allergies No Known Allergies Results Component Value Reference Range Notes UDT Reviewed date:01/27/2025 04:47:12 PM Interpretation: Performing Lab: Notes/Report: THC N 0 - 50 ng/ml Cocaine N 0 - 300 ng/ml Amphetamine N 0 - 1000 ng/ml Buprenorphine (BUP) N 0 - 10 ng/ml Secobarbital (Bar) N 0 - 300 ng/ml Oxazepam (BZO) N 0 - 300 ng/ml 7-maepygterf-4,3-leakpnrk-7,3-diphenylpyrrolidine (JOHN P) N 0 - 300 ng/ml Methamphetamine (MET) N 0 - 1000 ng/ml Methylenedioxymethamphetamine (MDMA) N 0 - 500 ng/ml Morphine (MOP 300/[id number]) N 0 - 300 ng/ml Methadone (MTD) N 0 - 300 ng/ml Phencyclidine (PCP) N 0 - 25 ng/ml Nortriptyline (TCA) N 0 - 1000 ng/ml Oxycodone N 0 - 300 ng/ml x N 0 - 300 ng/ml UDT Reviewed date:06/01/2024 11:36:38 AM Interpretation: Performing Lab: Notes/Report: THC n 0 - 50 ng/ml Cocaine n 0 - 300 ng/ml Amphetamine n 0 - 1000 ng/ml Buprenorphine (BUP) n 0 - 10 ng/ml Secobarbital (Bar) n 0 - 300 ng/ml Oxazepam (BZO) n 0 - 300 ng/ml 8-ntetzrntpo-5,3-xkizudyj-5,3-diphenylpyrrolidine (JOHN P) n 0 - 300 ng/ml Methamphetamine (MET) n 0 - 1000 ng/ml Methylenedioxymethamphetamine (MDMA) n 0 - 500 ng/ml Morphine (MOP 300/[id number]) n 0 - 300 ng/ml Methadone (MTD) n 0 - 300 ng/ml Phencyclidine (PCP) n 0 - 25 ng/ml Nortriptyline (TCA) n 0 - 1000 ng/ml Oxycodone n 0 - 300 ng/ml x n 0 - 300 ng/ml Reason For Referral No Information Medications Medication SIG (Take, Route, Frequency, Duration) Notes Start Date End Date Status LORazepam 0.5 MG 1 tablet Orally Once a day 05/13/2024 Not-Taking DULoxetine HCl 30 MG Take 1 capsule by m outh once daily; Duration: 90 Active buPROPion HCl ER (XL) 150 MG 1 tablet in the morning Orally Once a day; Duration: 90 days Active Social History Tobacco Use: [...] Risk Notes Problem Mild recurrent major depression (22493992) Major depressive disorder, recurrent, mild (F33.0) Active confirmed Problem Generalized anxiety disorder (F41.1) Active confirmed Problem Attention deficit hyperactivity disorder (655504732) ADHD (attention deficit hyperactivity disorder), combined type (F90.2) Active confirmed Vital Signs Heart Rate 94 /min 01/27/2025 Height-cm 160.02 cm 01/27/2025 Blood pressure diastolic 81 mm Hg 01/27/2025 Weight-kg 72.58 kg 01/27/2025 Height 63.00 in 01/27/2025 Blood pressure systolic 115 mm Hg 01/27/2025 Weight 160 lbs 01/27/2025 BMI 28.34 kg/m2 01/27/2025 Encounters Encounter Location Date Provider Diagnosis [address] [address] 05/31/2024 Dar Salomon ADHD (attention defi cit hyperactivity disorder), combined type F90.[address] [address] 06/07/2024 Claudia Kurkalina Major depressive disorder, recurrent, mild F33.0 ; Generalized anxiety disorder F41.1 and ADHD (attention deficit hyperactivity disorder), combined type F90.[address] [address] 08/05/2024 Claudia Kurilla Major depressive disorder, recurrent, mild F33.0 ; Generalized anxiety disorder F41.1 and ADHD (attention deficit hyperactivity disorder), combined type F90.[address] [address] 09/02/2024 Claudia Esme Major depressive disorder, recurrent, mild F33.0 ; Generalized anxiety disorder F41.1 and ADHD (attention deficit hyperactivity disorder), combined type F90.[address] [address] 11/04/2024 Claudia Kurilla Major depressive disorder, recurrent, mild F33.0 ; Generalized anxiety disorder F41.1 and ADHD (attention deficit hyperactivity disorder), combined type F90.[address] [address] 01/27/2025 Claudiaanaya Victoria Encounter for screen ing for cardiovascular disorders Z13.6 ; Encounter for screening for depression Z13.31 ; Major depressive disorder, recurrent, mild F33.0 ; Generalized anxiety disorder F41.1 and ADHD (attention deficit hyperactivity disorder), combined type F90.[address] [address] 09/27/2024 Claudiaanaya Victoria [facility], [address] [address] 11/21/2024 Claudiaanaya Victoria [facility] [address] [place] [address] 11/04/2024 Claudia Victoria [facility] [address] [place] [address] 11/12/2024 Claudia Victoria [facility] [address] [place] [address] 11/14/2024 Claudia Victoria Assessments Encounter Date Diagnosis (ICD Code) Assessment Notes Treatment Notes Treatment Clinical Notes Section Notes 08/05/2024 Major depressive disorder, recurrent, mild (ICD-10 - F33.0) 11/04/2024 Major depressive disorder, recurrent, mild (ICD-10 - F33.0) 05/31/2024 ADHD (attention deficit hyperactivity disorder), combined type (ICD-10 - F90.2) 06/07/2024 Major depressive disorder, recurrent, mild (ICD-10 - F33.0) 09/02/2024 Major depressive disorder, recurrent, mild (ICD-10 - F33.0) 01/27/2025 Encounter for screening for cardiovascular disorders (ICD-10 - Z13.6) 01/27/2025 Encounter for screening for depression (ICD-10 - Z13.31) 09/02/2024 Generalized anxiety disorder (ICD-10 - F41.1) 06/07/2024 Generalized anxiety disorder (ICD-10 - F41.1) 11/04/2024 Generalized anxiety disorder (ICD-10 - F41.1) 08/05/2024 Generalized anxiety disorder (ICD-10 - F41.1) 08/05/2024 ADHD (attention deficit hyperactivity disorder), combined type (ICD-10 - F90.2) working dx 11/04/2024 ADHD (attention deficit hyperactivity disorder), combined type (ICD-10 - F90.2) 01/27/2025 Major depressive disorder, recurrent, mild (ICD-10 - F33.0) SSRI/SNRI side effects discussed including but not limited to, gastric upset, nausea, vomiting, diarrhea and/or constipation, weight changes, sexual side effects including loss of libido, increased suicidal thoughts/behavi ors in children and young adults, and serotonin syndrome. Common side effects of Wellbutrin include insomnia, increased anxiety, nausea, dizziness, decreased appetite, restlessness, irritability and anger, increased sweating or hot flashes, tremors, joint pain. Wellbutrin is not recommended in individuals with a history of seizures. If side effects persist, please contact the office. 06/07/2024 ADHD (attention deficit hyperactivity disorder), combined type (ICD-10 - F90.2) working dx 09/02/2024 ADHD (attention deficit hyperactivity disorder), combined type (ICD-10 - F90.2) working dx 01/27/2025 Generalized anxiety disorder (ICD-10 - F41.1) 01/27/2025 ADHD (attention deficit hyperactivity disorder), combined type (ICD-10 - F90.2) 06/07/2024 Other ADHD evaluation reviewed, overall did [...] Consider tapering off of duloxetine after holidays 11/04/2024 Other Increase duloxetine to 60mg daily Continue off of Wellbutrin for now per pt request Patient educated on all medications including potential benefits, side effects, risks. Educated on proper dosing schedule and importance of compliance. Referred to counseling -Assessment and treatment plan reviewed with patient. -Compliance with treatment plan importance discussed. -Discussed the risks/benefits of this medication -Discussed medication side effects. -Contact office if symptoms worsen. -Discussed that it can take up to 6-8 weeks to see full therapeutic effects of psychotropic medications. -Crisis prevention hotline 988. 01/27/2025 Other Decrease duloxetine to 30mg daily -discussed montioring for increase in anxiety and depression and will increase back to 60mg daily if needed Continue Wellbutrin 150mg daily Patient educated on all medications including potential benefits, side effects, risks. Educated on proper dosing schedule and importance of compliance. -Assessment and treatment plan reviewed with patient. -Compliance with treatment plan importance discussed. -Discussed the risks/benefits of this medication -Discussed medication side effects. -Contact office if symptoms worsen. -Discussed that it can take up to 6-8 weeks to see full therapeutic effects of psychotropic medications. -Crisis prevention hotline 988. Plan Of Treatment Pending Test Test Name Order Date ADHD Testing 05/13/2024 Next Appt Details Provider Name:Claudia Crys coffman, 07/28/2025 04:45:00 PM, [address], [place], [address], Insurance Providers Payer Name Payer Address Payer Phone Subscriber Number Group Number Insured Name Patient Relationship to Insured Coverage Start Date Coverage End Date [facility] [address] [address] [place] [address] [phone] [id number] DAYLIN Babra Self - patient is the insured Medical (General) History Medical History History ICD Code Problems: Generalized anxiety disorder Mild recurrent major depression , Surgical History Surgery Date(Month/Year) Appendectomy (63828) 08/18/2015 Other 08/18/2015 Colectomy (21687) 08/18/2015
--- OUTSIDE RECORDS SUMMARY | 2025-05-26 17:00 | XMS_ITS ---
Author Organization [facility] [employer] [facility] Address [facility] [address] [facility] [address] [place] [address] Care Team Providers Care Card Processing Clerk Name Role Phone Christianne Fuentes Primary Care Provider Unavailable Claudia Victoria Unavailable [phone] Elena Lancaster Unavailable [phone] REASON FOR VISIT pt cancelled thru portal, she went elsewhere for therapy Social History Sex Assigned At : Social History Observation Description Sex Assigned At Female Encounters Encounter Location Date Provider Diagnosis [facility] [place] [address] [facility] [address] [place] [address] 12/02/2024 Elena Lancaster Plan Of Treatment Next Appt Details Provider Name:Claudia coffman, 07/28/2025 04:45:00 PM, [facility], [facility] [address], [place], [address], Progress Notes * JOSELIN COX LYNDOB:1985 (39 yo F)Acc No.[id number]:12/02/2024 Patient: Jackie RUEDADAYLIN GRADY Provider: Leda LANCASTER LCSW :1985 A ge:38 Y S ex:Female Date:12/02/2024 [address] [facility] Pcp:Christianne Tirado [facility] Data: * Chief Complaints: * 1 . Pt cancelled thru portal, she went elsewhere for therapy. * Medical History: * Vitals: Assessment: Plan: * Treatment: * Billing Information: * Visit Code: * Procedure Codes: * Electronic signature of Elena Lancaster LCSW on 05/26/2025 at 05:00 PM CDT Sign off status: Pending Signatures: No Ad Hoc Signature Added * Provider: Leda LANCASTER LCSW Date: 0 12/02/2024 Generated for Soha vazquez/Jasper/Donna on: 05/26/2025 05:00 PM CDT
[2025-05-26 17:56] LABS: Beta HCG Quantitative 229.13 mIU/ML
== END 2025-05-26 16:56 | disposition home or self-care (01) ==
LOC: ANHLAB 16:58
PROVIDERS: PCP Nurse Practitioner Family; Visit Provider Nurse Practitioner Family
DX: Z32.01 Encounter for pregnancy test, result positive (principal)
CPT/HCPCS: 36415; 84702

== ENCOUNTER 2025-05-28 11:34 | Outpatient (CLI) | payer OTHER, SELFPAY ==
--- OUTSIDE RECORDS SUMMARY | 2025-05-28 12:06 | XMS_ITS | Clinical Summary ---
Author Organization [facility] Address [facility] [place] [address] Care Team Providers Care Media Law Faculty Member Name Role Phone Rachelljeremy Christianne Mcgovern [facility] Primary Care Provid er Allergies Active Allergy [...] piratory syndrome coronavirus 2 (SARS-CoV-2) 05/29/2021 02/24/2023 ([facility]) 01/15/2020 02/25/20 23 Immunizations Immunization Administration Dates [...] - 2023-2 5 season) 2024 PHQ-2 (Physician [place]) 10/09/2024 03/18/2024 Mammogram Screening 2024 Hepatitis C [...] Health Maintenance Results * HEPATITIS C AB ([facility] ONLY) (03/17/2022 11:39 AM CDT) HEPATITIS C AB NON-REACTI VE NON-REACTI VE 03/17/2022 9:42 PM CDT [facility] 03/17/2022 11:3 9 AM CDT Sandra Mon NP LABORATORY Final Resul t [facility] [address] [place] [address], [place] [phone] from Last 3 Months or Most Recently Relevant to Health Maintenance Insurance [employer] [place] [id number] Care Teams Media Law Faculty Member Relationship Specialty Start Date End Date Christianne Tirado FNP-BC [address] [place] [address] PCP - General Nurse Practitioner Family 12/07/22
--- OUTSIDE RECORDS SUMMARY | 2025-05-28 12:06 | XMS_ITS | Patient Health Record ---
Author Organization [facility] Address [address] [facility] [address] [place] [address] Care Team Providers Care Private Duty Rn Name Role Phone [facility] Primary [facility] Provider Unavailable Claudia Victoria Unavailable [phone] Elena Crenshaw Unavailable [phone] Dar Salomon Unavailable [phone] Allergies No Known Allergies Results Component Value Reference Range Notes UDT Reviewed date:06/01/2024 11:36:38 AM Interpretation: Performing Lab: Notes/Report: THC n 0 - 50 ng/ml Cocaine n 0 - 300 ng/ml Amphetamine n 0 - 1000 ng/ml Buprenorphine (BUP) n 0 - 10 ng/ml Secobarbital (Bar) n 0 - 300 ng/ml Oxazepam (BZO) n 0 - 300 ng/ml 0-xvuhiuvkqy-5,2-piejukpo-1,3-diphenylpyrrolidine (JOHN P) n 0 - 300 ng/ml Methamphetamine (MET) n 0 - 1000 ng/ml Methylenedioxymethamphetamine (MDMA) n 0 - 500 ng/ml Morphine (MOP 300/[id number]) n 0 - 300 ng/ml Methadone (MTD) n 0 - 300 ng/ml Phencyclidine (PCP) n 0 - 25 ng/ml Nortriptyline (TCA) n 0 - 1000 ng/ml Oxycodone n 0 - 300 ng/ml x n 0 - 300 ng/ml UDT Reviewed date:01/27/2025 04:47:12 PM Interpretation: Performing Lab: Notes/Report: THC N 0 - 50 ng/ml Cocaine N 0 - 300 ng/ml Amphetamine N 0 - 1000 ng/ml Buprenorphine (BUP) N 0 - 10 ng/ml Secobarbital (Bar) N 0 - 300 ng/ml Oxazepam (BZO) N 0 - 300 ng/ml 7-bnluxoofku-0,2-uniuhlkd-7,3-diphenylpyrrolidine (JOHN P) N 0 - 300 ng/ml Methamphetamine (MET) N 0 - 1000 ng/ml Methylenedioxymethamphetamine (MDMA) N 0 - 500 ng/ml Morphine (MOP 300/[id number]) N 0 - 300 ng/ml Methadone (MTD) N 0 - 300 ng/ml Phencyclidine (PCP) N 0 - 25 ng/ml Nortriptyline (TCA) N 0 - 1000 ng/ml Oxycodone N 0 - 300 ng/ml x N 0 - 300 ng/ml Reason For Referral No Information Medications Medication SIG (Take, Route, Frequency, Duration) Notes Start Date End Date Status LORazepam 0.5 MG Tablet 1 tablet Orally Once a day 05/13/2024 Not-Taking DULoxetine HCl 30 MG Capsule Delayed Release Particles Take 1 capsule by mouth once daily; Duration: 90 Active buPROPion HCl ER (XL) 150 MG Tablet Extended Release 24 Hour 1 tablet in the morning Orally Once a day; Duration: 90 days Active Social History Tobacco Use: Social History Observation Description Date Details (start date - stop date) Never Smoker NA - NA Sex Assigned At : Social History Observation Description Sex Assigned At Female Social History Miscellaneous: Social Info Question Answer Notes Advance Care Planning Are you your own decision-maker Yes Do you have Power of Computer Systems Technician for Health or Medi richard? No Household: Social Info Question Answer Notes Household Marital status: Number of children in household: One daughter Tobacco Use: Social Info Question Answer Notes Tobacco Control (Standard) Tobacco use: Nonsmoker Additional Details Category Social Info Options Details Miscellaneous: Occupation: radiation therapy technologist apist Migrated Social History Migrated Social History Alcohol Intake: Moderate 10/05/2023,Tobacco Years: Never smoker 10/05/2023 Problems Problem Type SNOMED Code ICD Code Onset Dates Problem Status W/U Status Risk Notes Problem Mild recurrent major depression (46372490) Major depressive disorder, recurrent, mild (F33.0) Active confirmed Problem Generalized anxiety disorder (38239002) Generalized anxiety disorder (F41.1) Active confirmed Problem Attention deficit hyperactivity disorder (075269001) ADHD (attention deficit hyperactivity disorder), combined type (F90.2) Active confirmed Vital Signs Heart Rate 94 /min 01/27/2025 Height-cm 160.02 cm 01/27/2025 Blood pressure diastolic 81 mm Hg 01/27/2025 Weight-kg 72.58 kg 01/27/2025 Height 63.00 in 01/27/2025 Blood pressure systolic 115 mm Hg 01/27/2025 Weight 160 lbs 01/27/2025 BMI 28.34 kg/m2 01/27/2025 Encounters Encounter Location Date Provider Diagnosis [facility] [id number] [facility] [address] [facility] [address] [place] [address] 05/31/2024 Dar Salomon ADHD (attention defi cit hyperactivity disorder), combined type F90.2 [facility] [address] 06/07/2024 Claudia Kurilla Major depressive disorder, recurrent, mild F33.0 ; Generalized anxiety disorder F41.1 and ADHD (attention deficit hyperactivity disorder), combined type F90.2 [facility] [place] [address] [facility] [address] [place] [address] 08/05/2024 Claudia Kurilla Major depressive disorder, recurrent, mild F33.0 ; Generalized anxiety disorder F41.1 and ADHD (attention deficit hyperactivity disorder), combined type F90.2 [facility] [place] [address] [facility] [address] [facility] [address] [place] [address] 09/02/2024 Claudia Kurilla Major depressive disorder, recurrent, mild F33.0 ; Generalized anxiety disorder F41.1 and ADHD (attention deficit hyperactivity disorder), combined type F90.2 [facility] [place] [address] [address] 11/04/2024 Claudia Kurilla Major depressive disorder, recurrent, mild F33.0 ; Generalized anxiety disorder F41.1 and ADHD (attention deficit hyperactivity disorder), combined type F90.2 [facility] [place] [address] [facility] [address] [place] [address] 01/27/2025 Claudiaanaya Victoria Encounter for screen ing for cardiovascular disorders Z13.6 ; Encounter for screening for depression Z13.31 ; Major depressive disorder, recurrent, mild F33.0 ; Generalized anxiety disorder F41.1 and ADHD (attention deficit hyperactivity disorder), combined type F90.2 [facility] [id number] [facility] [address] [place] [address] 09/27/2024 Claudia Victoria [facility] [address] [place] [address] 11/21/2024 Claudia Victoria [facility] [address] [place] [address] 11/04/2024 Claudia Victoria [facility] [address] [place] [address] 11/12/2024 Claudia Victoria [facility] [address] [place] [address] 11/14/2024 Claudia Victoria Assessments Encounter Date Diagnosis [...] Name:Claudia Crys coffman, 07/28/2025 04:45:00 PM, [address] [facility] [address] [facility] [address], [place], [address], Insurance Providers Payer Name Payer Address Payer Phone Subscriber Number Group Number Insured Name Patient Relationship to Insured Coverage Start Date Coverage End Date [facility] [address] [address] [place] [address] [id number] DAYLIN Barba Self - patient is the insured Medical (General) History Medical History History ICD Code Problems: Generalized anxiety disorder Mild recurrent major depression , Surgical History Surgery Date(Month/Year) Appendectomy (25378) 08/18/2015 Other 08/18/2015 Colectomy (14386) 08/18/2015
[2025-05-28 12:36] LABS: Beta HCG Quantitative 554.25 mIU/ML
== END 2025-05-28 11:35 | disposition home or self-care (01) ==
LOC: ANHLAB 11:36
PROVIDERS: PCP Nurse Practitioner Family; Visit Provider Nurse Practitioner Obstetrics & Gynecology
DX: O09.299 Supervision of pregnancy with other poor reproductive or obstetric history, unspecified trimester (principal); Z3A.00 Weeks of gestation of pregnancy not specified
CPT/HCPCS: 36415; 84144; 84702

== ENCOUNTER 2025-06-18 12:27 | Outpatient (CLI) | payer OTHER, SELFPAY ==
--- NOTE | ~2025-06-18 | US_ITS ---
EXAMINATION: US OB <=14 wk fetus w TV DATE: 06/18/2025 12:52 INDICATION: with inconclusive viability TECHNIQUE: Real-time pelvic ultrasound utilizing both a transvaginal and transabdominal probe was performed. The interpreting radiologist was not present for the study. COMPARISON: None. FINDINGS: The uterus measures 13.5 x 5.1 x 6.8 cm. There is an intrauterine gestational sac. A yolk sac and pole are identified. The crown rump length measures 1.5 cm, which correlates with an estimated gestational age of 7 weeks and 6 days. heart motion is identified measuring 149 beats per minute (bpm) by M-mode Doppler. 3.4 x 2.2 x 0.9 cm hypoechoic region at the left side of the gestational sac consistent with small subchorionic hematoma. The right ovary measures 2.9 x 2.7 x 2.3 cm. 2 cm anechoic likely nabothian cyst in the right ovary. The left ovary measures 2.9 x 2.3 x 2.1 cm. There is no free fluid in the pelvis. IMPRESSION: 1. Single living fetus with heart rate of 149 bpm. 2. Gestational age by ultrasound of 7 weeks 6 day(s) +/- 5 day(s) with ultrasound estimated date of delivery (JOHN) of 01/29/2026. 3. Small subchorionic hematoma. Reviewed, dictated and finalized at location A. IMPRESSION: 1. Single living fetus with heart rate of 149 bpm. 2. Gestational age by ultrasound of 7 weeks 6 day(s) +/- 5 day(s) with ultraso und estimated date of delivery (JOHN) of 01/29/2026. 3. Small subchorionic hematoma.
== END 2025-06-18 12:28 | disposition home or self-care (01) ==
LOC: GOSHIMG 12:27
PROVIDERS: PCP Nurse Practitioner Obstetrics & Gynecology; Visit Provider Nurse Practitioner Obstetrics & Gynecology
DX: O36.80X0 Pregnancy with inconclusive fetal viability, not applicable or unspecified (principal); Z3A.01 Less than 8 weeks gestation of pregnancy
CPT/HCPCS: 76801; 76817

== ENCOUNTER 2025-08-07 15:54 | Outpatient (CLI) | payer OTHER, SELFPAY ==
--- OUTSIDE RECORDS SUMMARY | 2025-08-07 15:57 | XMS_ITS | Clinical Summary ---
Author Organization [facility] Address Formerly [facility] [place] [address] Care Team Providers Care Preschool Paraprofessional Name Role Phone Rachelljeremy Christianne Mcgovern [facility] Primary Care Provid er Allergies Active Allergy [...] piratory syndrome coronavirus 2 (SARS-CoV-2) 05/29/2021 02/24/2023 01/15/2020 02/24/2023 Immunizations Immunization Administration Dates Next Due Fluzone [...] 5 Years 2014 Cervical Cancer Screening wi HPV 2014 PHQ-2 (Physician Augustine) 10/09/2024 03/18/2024 Mammogram Screening 2024 COVID-19 Vaccine (2024-2 6 season) 2025 Influenza Adult (#1) 2025 08/25/2023, 08/09/2019, 07/17/2012 Hepatitis C Completed 03/17/2022 Hepatitis A Vaccines Aged Out No long er eligible based on patient's age to complete this topic Meningococcal B Vaccine Aged Out No l onger eligible based on patient's age to complete this topic Meningococcal Vaccine Aged Out No marta fernanda eligible based on patient's age to complete this topic Pneumococcal Vaccine: Pediatrics (0 to 5 Years) and At-Risk Patients (6 to 49 Years) Aged Out No longer eligible b [...] Health Maintenance Results * HEPATITIS C AB ([facility] ONLY) (03/17/2022 11:39 AM CDT) HEPATITIS C AB NON-REACTI VE NON-REACTI VE 03/17/2022 9:42 PM CDT [facility] 03/17/2022 11:3 9 AM CDT us Sandra Mon NP LABORATORY Final Resul t [facility] [address] [place] [address], [place] [phone] from Last 3 Months or Most Recently Relevant to Health Maintenance Insurance [employer] Member Subscriber Plan / Payer (Ef fective 2022-Present) Name:LAUREN CHRIS Relation to Subscriber:Self Name:GoNiocle thomasLauren Sohail Payer ID:[id number] (NAIC) Type:Not on file Address: [place] [id number] Care Teams Preschool Paraprofessional Relationship Specialty Start Date End Date Christianne Tirado FNP- [address] [place] [address] PCP - General Nurse Practitioner Family 12/07/22
[2025-08-07 16:56] LABS: Hematocrit 32.9 % (37.0-47.0); Hemoglobin 10.6 g/dL (12.0-15.0); Mean Corpuscular HGB Conc 32.2 g/dl (32-36); Mean Corpuscular Hemoglobin 26.1 pg (26-34); Mean Corpuscular Volume 81.0 fl (80-100); Platelet Count Result 300 k/mm3 (150-375); Red Blood Count 4.06 M/mm3 (4.2-5.4); White Blood Count 7.4 K/mm3 (4.5-10.0)
[2025-08-07 17:33] LABS: Hemoglobin A1C 4.6 % (<5.7)
[2025-08-07 17:37] LABS: Thyroid Stimulating Hormone 1.020 uIU/mL (0.465-4.680)
[2025-08-07 17:49] LABS: Hepatitis B Surface Antigen Negative (Negative); Syphilis IgG/IgM Antibody Non-Reactive (Nonreactive)
[2025-08-07 17:49] LABS: HIV 1/2 Ab P24 Ag Result Negative (Negative)
[2025-08-08 08:09] LABS: Varicella-Zoster Ab, IgG Reactive (Non Reactive)
== END 2025-08-07 15:55 | disposition home or self-care (01) ==
LOC: ANHLAB 15:55
PROVIDERS: Visit Provider Obstetrics & Gynecology
DX: O09.529 Supervision of elderly multigravida, unspecified trimester (principal); Z3A.00 Weeks of gestation of pregnancy not specified
CPT/HCPCS: 36415; 83020; 83036; 84443; 85027; 86593; 86703; 86762; 86787; 86803; 86850; 86900; 86901; 87340; G0432

== ENCOUNTER 2025-08-25 08:37 | Outpatient (CLI) | payer OTHER, SELFPAY ==
[2025-08-25 09:33] LABS: Total Volume 24 Hour Urine 2100 ml
[2025-08-25 09:42] LABS: Total Protein Urine 24 Hr 273 mg/24hr (28-141); Total Protein Urine Random 13 mg/dL
[2025-08-25 10:10] LABS: Add Urine Microscopic? YES; Appearance Urine Turbid (Clear); Glucose Urine UA Negative (Negative); Leukocyte Esterase Ur Trace LEU/UL (Negative); Nitrate Urine Negative (Negative); Non Pathogenic Casts 0-2; Specific Grav Ur 1.016 (1.001-1.035)
== END 2025-08-25 08:38 | disposition home or self-care (01) ==
PROVIDERS: PCP Nurse Practitioner Family; Visit Provider Obstetrics & Gynecology
DX: O09.529 Supervision of elderly multigravida, unspecified trimester (principal); Z3A.00 Weeks of gestation of pregnancy not specified; Z87.59 Personal history of other complications of pregnancy, childbirth and the puerperium
CPT/HCPCS: 81001; 81050; 84156; 87086